=== PATIENT | male | born 1945 | race Two or more races ===

== ENCOUNTER → 2025-03-30 | Outpatient (CLI) | payer MEDICARE, SELFPAY ==
--- NOTE | 2025-03-30 14:00 | XR_ITS ---
Examination: Retroperitoneal ultrasound, complete Technique: Multiple high resolution grayscale images of the retroperitoneum obtained, including kidneys and bladder. Exam date and time:March 30, 2025 1329 hours INDICATIONS: Chronic kidney disease diagnosis on laboratory examination one month ago FINDINGS: Right kidney 10.7 cm cortex 1.6 cm Left kidney 11.8 cm cortex 2.4 cm Moderate renal parenchymal scar formation Perinephric stranding left kidney No hydronephrosis or renal calculi No bladder mass or bladder calculi Bladder prevoid volume 142 cc Prostatomegaly 61.4 cc volume no prostate nodules IMPRESSION: Bilateral moderate renal parenchymal scar formation No hydronephrosis
== END | disposition home or self-care (01) ==
PROVIDERS: Referring Provider Physician Assistant; Visit Provider Physician Assistant
DX: N28.89 Other specified disorders of kidney and ureter (principal)
CPT/HCPCS: 76770

== ENCOUNTER → 2025-09-03 | Outpatient (CLI) | payer MEDICARE, SELFPAY ==
--- NOTE | 2025-09-03 10:30 | XR_ITS ---
Examination: Abdomen sonogram, complete Date and time of exam: September 03, 2025, 1028 hours INDICATIONS: Elevated liver enzymes on laboratory examination this week.. Technique: Multiple real-time grayscale transabdominal sonographic images of the abdomen have been obtained. Findings: Absent gallbladder Common bile duct 0.5 cm no stones Pancreas obscured by bowel gas Mid and distal aorta visualized not enlarged Liver 16 cm fatty infiltration Normal hepatopetal portal venous flow Patent IVC Right kidney 8.9 cm renal cortex 1.7 cm Left kidney 11.0 cm renal cortex 2.8 cm Moderate renal scar formation Spleen 12 cm IMPRESSION: Normal common bile duct Moderate bilateral renal scar formation
== END | disposition home or self-care (01) ==
PROVIDERS: PCP Nurse Practitioner Primary Care; Referring Provider Nurse Practitioner Primary Care; Visit Provider Nurse Practitioner Primary Care
DX: N28.89 Other specified disorders of kidney and ureter (principal)
CPT/HCPCS: 76700

== ENCOUNTER 2025-09-21 14:45 | Inpatient (IN) | payer MEDICARE, SELFPAY ==
[2025-09-21] VITALS (8 sets, daily range): BP systolic 93–152; BP diastolic 54–74; PULSE 77–95; RESP 16–85; TEMP 36.1–36.7; O2SAT 93–98; BMI 28.0; BMI 28.6
--- NOTE | 2025-09-21 14:57 | XR_ITS ---
AP portable upright chest film 09/21/2025. Comparison study 08/29/2021. Study was performed on 09/21/2025 at 2:59 p.m. CLINICAL INDICATION: Weakness and shortness of breath today FINDINGS: Heart size and mediastinum appear radiographically normal there is slight elevation of the right hemidiaphragm which appears to be a normal finding in this patient, it is unchanged since the film in 2020. Pulmonary vascularity is normal. No infiltrates or consolidation are seen in either lung, no pleural fluid is noted impression: Normal chest x-ray
--- NOTE | 2025-09-21 14:58 | EKG_ITS ---
[facility] Test Date: 2025-09-21 Pat Name: LING DUONG Department: Room: - Gender: Male [place]: : 1945 Requested By: Anand Houser Order Number: [id number] Reading MD: Anand Houser Measurements Intervals Esko Rate: 88 P: 14 WY: 170 QRS: 95 QRSD: 132 T: 26 QT: 394 QTc: 478 Interpretive Statements SINUS RHYTHM RIGHT BUNDLE BRANCH BLOCK [120+ ms QRS DURATION, UPRIGHT V1, 40+ ms S IN I/aVL/V4/V5/V6] Compared to ECG 09/07/2020 11:53:20 No significant changes /store/S0/[id number].pdf
--- NOTE | 2025-09-21 15:01 | EDNOTE_ITS ---
ED General RME/HPI General Chief complaint: Abdominal Pain Stated complaint: ABD PAIN Time Seen by Provider: 09/21/25 14:57 Arrival date/time: 09/21/25 14:45 CC: Generalized weakness and abdominal distention HPI patient presents to the ER via EMS from the PCPs office where the patient states he is worried that his abdomen has become more distended. EMS reports stable vital signs patient is awake alert oriented nontoxic-appearing denies any chest pain no nausea or vomiting. Related Data Home Medications ?Medication ?Instructions ?Recorded ?Confirmed omeprazole 40 mg capsule,delayed 40 mg PO DAILY 08/30/21 release Previous Rx's ?Medication ?Instructions ?Recorded amlodipine 5 mg tablet 5 mg PO DAILY 30 days atorvastatin 40 mg tablet 40 mg PO DAILY 30 days 08/30 blood sugar diagnostic (Accu-Chek #100 ea 08/30/21 Tasha Plus test strips) chlorthalidone 25 mg tablet 12.5 mg (1/2 x 25 mg) PO D AILY 30 08/30/21 days doxazosin 1 mg tablet 1 mg PO QDAY 30 days #30 tab s 08/30/21 insulin glargine 100 unit/mL (3 20 unit (0.2 mL) subcu t QAM #15 mL 08/30/21 mL) subcutaneous pen (Basaglar KwikPen U-100 Insulin) lancets #100 ea 08/30/21 lisinopril 40 mg tablet 40 mg PO DAILY 30 days #60 t abs 08/30/21 lisinopril 40 mg tablet 40 mg PO QDAY #30 tabs 08/30 Allergies Allergy/AdvReac Type Severity Reaction Status Date / Time No Known Allergies Allergy Verified 08/28/21 18:55 Review of Systems Review of Systems Narrative Review of Systems: GEN: No fever, no chills, no weight loss EYES: No discharge, no visual changes, no pain HEENT: No ear pain, no congestion, no sore throat PULM: No shortness of breath, no cough, no congestion CV: No chest pain, no dyspnea on exertion, no palpitations GI: No nausea, no vomiting, no diarrhea, no pain, no constipation : No frequency, no urgency, no dysuria MUSC/SKEL: No joint pain, no back pain SKIN: No rash PSYCH: No hallucinations, no depression HEME/LYMPH: No easy bleeding or bruising tendencies NEURO: + weakness, no headache ED Exam Narrative Physical exam: [General: Not in any acute distress Head normocephalic HEENT: Within acceptable limits Neck is supple nontender Chest equal chest rise nontender to palpation Respiratory: Clear to auscultation no wheezes crackles or rubs CV: Rate rhythm is regular no murmurs rubs or clicks Abdomen is distended, firm but not rigid, nontender, positive bowel sounds all 4 quadrants Back: No CVA tenderness no spinous process tenderness from cervical spine thoracic and lumbar spine Skin: Intact no petechiae rash induration ulceration or crepitus Extremities: Moving all extremity against resistance cap refill less than 2 seconds neurosensory intact Neuro: Awake alert oriented x3 Glascow coma 15 no focal deficits] Course Course Course Narrative: Patient started vomiting at approximately 1627. Patient's case discussed with Dr. Morton who agrees to consult on the patient Patient's case presented to resident for Dr. Reinoso who agrees to accept the patient for admission. Resident called at 1724 requesting IV insulin and fluids with a recheck of his CMP to be determined that the patient is not in DKA. I informed the patient that he has no anion gap and the beta is not accidentally actively elevated. Quality Measures none Orders Category Date Time Status Admit to Inpatient Status Routine Admission 09/21/25 20:11 Active Patient Condition Routine Admission 09/21/25 20:11 Ordered Aspiration precautions NOW Care 09/21/25 20:13 Active Bedside Blood Glucose Q6HR Care 09/21/25 20:20 Completed COVID-19 Screening Questionnaire NOW Care 09/21/25 16:26 Completed Decision to Admit X1 Care 09/21/25 16:23 Completed EKG (ED ONLY) *Do not use* NOW Care 09/21/25 14:58 Completed NG / OG Tube to LIS NOW Care 09/21/25 16:22 Completed NPO NOW Care 09/21/25 20:13 Active Notify provider NEEDED Care 09/21/25 20:11 Active Sequential Compression Device QSHIFT Care 09/21/25 20:10 Active Consult to General Surgery Stat Cons 09/21/25 16:01 Ordered Diet NPO (NOW) Diet 09/21/25 20:[address] abdomen pelvis wo con Stat Exams 09/21/25 15:03 Completed EKG (ED Only) Stat Exams 09/21/25 14:58 Draft XR chest 1V Stat Exams 09/21/25 14:57 Completed XR chest 1V post procedure Stat Exams 09/21/25 16:59 Completed ABG [Arterial Blood Gas] Stat Lab 09/21/25 17:09 Completed B-Type Natriuretic Peptide Stat Lab 09/21/25 15:20 Completed Beta Hydroxybutyrate Stat Lab 09/21/25 16:16 Completed Blood Culture (Lab) Stat Lab 09/21/25 16:16 Received CBC AM DRAW Lab 09/22/25 05:00 Ordered CBC AM DRAW Lab 09/23/25 05:00 Ordered CBC AM DRAW Lab 09/24/25 05:00 Ordered CBC Stat Lab 09/21/25 15:20 Completed CBC Stat Lab 09/21/25 17:29 Completed CMP [Comprehensive Metabolic Panel] Stat Lab 09/21/25 17:29 Completed Comprehensive Metabolic Panel AM DRAW Lab 09/22/25 05:00 Ordered Comprehensive Metabolic Panel AM DRAW Lab 09/23/25 05:00 Ordered Comprehensive Metabolic Panel AM DRAW Lab 09/24/25 05:00 Ordered Comprehensive Metabolic Panel Stat Lab 09/21/25 15:20 Completed Drug Screen,Urine Stat Lab 09/21/25 20:50 Completed Glycohemoglobin w (eAG) AM DRAW Lab 09/22/25 05:00 Ordered LDH (Lactate Dehydrogenase) Stat Lab 09/21/25 15:20 Completed Lactic Acid [Lactate (Lactic Acid)] Stat Lab 09/21/25 16:16 Completed Lactic Acid, 3 HR Stat Lab 09/21/25 19:59 Completed Magnesium AM DRAW Lab 09/22/25 05:00 Ordered Magnesium AM DRAW Lab 09/23/25 05:00 Ordered Magnesium AM DRAW Lab 09/24/25 05:00 Ordered Magnesium Stat Lab 09/21/25 15:20 Completed Partial Thromboplastin Time AM DRAW Lab 09/22/25 05:00 Ordered Partial Thromboplastin Time Stat Lab 09/21/25 15:20 Completed Path Review Blood Smear Stat Lab 09/21/25 15:20 Completed Path Review Blood Smear Stat Lab 09/21/25 17:29 Completed Procalcitonin Stat Lab 09/21/25 15:20 Completed Prothrombin Time with INR AM DRAW Lab 09/22/25 05:00 Ordered Prothrombin Time with INR Stat Lab 09/21/25 15:20 Completed Renal Function Panel Stat Lab 09/21/25 20:55 Completed Thyroid Stimulating Hormone AM DRAW Lab 09/22/25 05:00 Ordered Troponin I Stat Lab 09/21/25 15:20 Completed Urinalysis, C/S if Indicated Stat Lab 09/21/25 20:50 Completed Dextrose 50% Syr [D50w Syringe Abboject] Med 09/21/25 20:20 Active 25 ml IV Q15MIN PRN Dextrose 50% Syr [D50w Syringe Abboject] Med 09/21/25 20:20 Active 50 ml IV Q15MIN PRN Glucagon Inj Med 09/21/25 20:20 Active 1 mg IM Q15MIN PRN INSULIN LISPRO (AdmeLOG) [HumaLOG] Med 09/21/25 20:30 Active See Protocol SC Q6H Insulin Degludec Inj Med 09/21/25 20:30 Active 15 unit SC QDAY@2100 Insulin Regular Med 09/21/25 17:22 Discontinued 5 unit IV X1 ONE Morphine* Inj Med 09/21/25 20:10 Active 2 mg IVP Q2H PRN Morphine* Inj Med 09/21/25 17:53 Discontinued 4 mg IVP X1 ONE Ondansetron Inj [Zofran Inj] Med 09/21/25 20:10 Active 4 mg IVP Q6H PRN Ondansetron Inj [Zofran Inj] Med 09/21/25 16:27 Discontinued 4 mg IVP X1 ONE Pantoprazole Inj [Protonix Inj] Med 09/21/25 20:15 Active 40 mg IVP QDAY Piper/Tazo 3.375 gm Premix [Zosyn] Med 09/22/25 06:00 Active 3.375 gm in 50 ml IV Q8HR Sodium Chloride 0.9% 1000 ml [Ns] 1,000 ml Med 09/21/25 15:58 Active IV 125 mls/hr Sodium Chloride 0.9% 1000 ml [Ns] 1,000 ml Med 09/21/25 16:23 Discontinued IV 999 mls/hr Code Status Routine Oth 09/21/25 20:10 Ordered Oxygen Delivery PRN RT 09/21/25 20:10 Active Vital Signs Vital signs: Vital Signs Temperature 97.6 F 09/21/25 14:48 Pulse Rate 84 09/21/25 14:48 Respiratory Rate 16 09/21/25 14:48 Blood Pressure 152/68 H 09/21/25 14:48 Pulse Oximetry (%) 95 09/21/25 14:48 Oxygen Delivery Method Room Air 09/21/25 14:48 Discharge Plan Plan Patient Disposition: Other Care w/in Hosp ([facility]ALIY[facility]) Patient condition on transfer: Stable Problem List Clinical Impression: SBO (small bowel obstruction), ERNESTO (acute kidney injury), Hyperglycemia PA/[employer] Supervising Physician PA/[employer] Supervising Physician: Anand Elmore ENP [facility] Clinical Information Provided by: patient Medical Records reviewed [facility] Meds/Rx considered, not ordered None Labs/Rad/Tests considered, not ordered None Chronic Illness/Social Conditions Explain: Diabetes EKG EKG not done Labs Labs: interpreted by la Lab(s) Interpretation(s): CBC shows a 40,100 WBCs. No anemia or thrombocytopenia. Coags within acceptable limits Imaging Imaging interpretation: interpreted by la Imaging Interpretation(s): CT abdomen pelvis shows a high-grade mechanical SBO. No free air noted. Chest x-ray is unremarkable. Medication Administration(s) Medication Administration History Dextrose (Dextrose 50%-Water Inj 50 Ml Syringe) 25 ml IV Q15MIN PRN PRN Reason: BG 50-70 responsive npo pt Stop: 10/21/25 20:19 Dextrose (Dextrose 50%-Water Inj 50 Ml Syringe) 50 ml IV Q15MIN PRN PRN Reason: BG <50 OR BG <70 & pt unresponsive Stop: 10/21/25 20:19 Glucagon (Glucagon Inj 1 Mg Vial) 1 mg IM Q15MIN PRN PRN Reason: BG <70, and no IV access Sodium Chloride (Ns) 1,000 mls @ 125 mls/hr IV .Q8H [facility] Stop: 10/21/25 15:57 Last Admin: 09/21/25 16:09 Dose: 125 mls/hr Documented By: DO Piperacillin/Tazobactam/Dextrose (Zosyn) 3.375 gm in 50 mls @ 12.5 mls/hr IV Q8HR [facility]; Protocol Stop: 09/29/25 05:59 Sodium Chloride (Ns) 1,000 mls @ 80 mls/hr IV .[id number] [facility] Stop: 09/22/25 08:59 Insulin Degludec (Insulin Degludec 5 Unit/0.05 Ml (Per 5 Units)) 15 unit SC QDAY@2100 RED Stop: 10/21/25 20:29 Last Admin: 09/21/25 22:21 Dose: 15 unit Documented By: SAVITA Co-signed By: Insulin Human Lispro (Insulin Lispro (Admelog) 1 Unit/0.01 Ml Unit) 0 unit SC Q6H RED; Protocol Stop: 10/21/25 20:29 Last Admin: 09/21/25 22:16 Dose: 3 unit Documented By: SAVITA Co-signed By: Morphine Sulfate (Morphine Sulf Inj 4 Mg/Ml Vial) 2 mg IVP Q2H PRN PRN Reason: PAIN SCALE 4-10(Mod-Sev Stop: 09/26/25 20:09 Last Admin: 09/21/25 22:21 Dose: 2 mg Documented By: SAVITA Ondansetron HCl (Ondansetron Inj 2 Mg/Ml Inj 2 Ml) 4 mg IVP Q6H PRN; Protocol PRN Reason: NAUSEA OR VOMITING Stop: 10/21/25 20:09 Pantoprazole Sodium (Pantoprazole Inj 40 Mg Vial) 40 mg IVP QDAY [facility] Stop: 10/21/25 20:14 Last Admin: 09/21/25 21:16 Dose: 40 mg Documented By: JAMARI Discontinued Medications Sodium Chloride (Ns) 1,000 mls @ 999 mls/hr IV .Q1H1M ONE Stop: 09/21/25 17:23 Last Infusion: 09/21/25 18:01 Dose: Infused Documented By: Admin: 09/21/25 17:07 Dose: 999 mls/hr Documented By: Piperacillin/Tazobactam/Dextrose (Zosyn) 3.375 gm in 50 mls @ 100 mls/hr IV X1 ONE; Protocol Stop: 09/21/25 20:59 Last Infusion: 09/21/25 21:46 Dose: Infused Documented By: Admin: 09/21/25 21:16 Dose: 100 mls/hr Documented By: JAMARI Insulin Human Regular (Insulin Hum Regular 1 Unit/0.01 Ml (Per Unit)) 5 unit IV X1 ONE Stop: 09/21/25 17:23 Last Admin: 09/21/25 17:33 Dose: 5 unit Documented By: Co-signed By: JENNIFER Morphine Sulfate (Morphine Sulf Inj 4 Mg/Ml Vial) 4 mg IVP X1 ONE Stop: 09/21/25 17:54 Last Admin: 09/21/25 18:09 Dose: 4 mg Documented By: Ondansetron HCl (Ondansetron Inj 2 Mg/Ml Inj 2 Ml) 4 mg IVP X1 ONE; Protocol Stop: 09/21/25 16:28 Last Admin: 09/21/25 17:06 Dose: 4 mg Documented By:
--- NOTE | 2025-09-21 15:03 | XR_ITS ---
Examination: CT abdomen and pelvis without contrast. Coronal 3-D reconstructions. Sagittal 2-D reconstructions. Date and time of exam: September 21, 2025, 1534 hours, comparison October 14, 2020 INDICATIONS: Abdominal pain and distention 1 month CTDI: vol (mGy): 9.53 DLP: (mGycm): 637 Technique: Axial images of the abdomen have been obtained, 3 mm slice thickness Intravenous contrast material has not been administered. Low dose protocols were performed. One or more of the following dose reduction techniques were used; automated exposure control, adjustment of the mA and/or KV according to patient size, use of iterative reconstruction technique. Findings: Trace pericardial fluid No focal liver lesions Spleen is not enlarged No pancreatic mass Nodular thickening of both adrenal glands No hydronephrosis Multiple abnormally fluid and air distended small bowel loops with some edema in the mesentery for instance axial image 163 No pneumoperitoneum Normal seminal vesicles Transverse prostate dimension 4.6 cm Soft tissue probable lipomatous mass 5 cm anterior to the right hip Advanced disc narrowing L5-S1 Prominent osteopenia IMPRESSION: High-grade mechanical small bowel obstruction Edema in the mesentery, although no air in the bowel wall or pneumoperitoneum, recommend surgical consultation
[2025-09-21 15:37] LABS: Basophils # (Auto) 0.2 Thou/mm3 (0.0-0.2); Basophils % (Auto) 1 % (0-2.5); Eosinophils # (Auto) 0.0 Thou/mm3 (0.0-0.5); Eosinophils % (Auto) 0 % (0-10); Hematocrit 47.0 % (41.0-53.0); Hemoglobin 16.4 g/dL (13.5-16.0); Immature Granulocytes Auto 0.80 Thou/mm3 (0.00-0.00); Lymphocytes # (Auto) 0.8 Thou/mm3 (1.0-4.8); Lymphocytes % (Auto) 2 % (10-50); Mean Corpuscular HGB Conc 34.9 g/dl (31.0-37.0); Mean Corpuscular Hemoglobin 30.9 pg (25.0-35.0); Mean Corpuscular Volume 89 fL (80-100); Monocytes # (Auto) 1.3 Thou/mm3 (0.0-0.8); Monocytes % (Auto) 3 % (0-12); Neutrophils # (Auto) 37.0 Thou/mm3 (1.8-7.7); Neutrophils % (Auto) 92 % (37-80); Nucleated Red Blood Cell # 0.00 Thou/mm3 (0.00-0.00); Nucleated Red Blood Cell % 0 /100 WBC (0); Platelet Count 243 Thou/mm3 (140-440); RDW Standard Deviation 39.2 fL (35.1-43.9); Red Blood Count 5.30 Miln/mm3 (4.50-5.90)
[2025-09-21 15:51] LABS: White Blood Count 40.1 Thou/mm3 (3.8-10.6)
[2025-09-21 15:52] LABS: INR 1.0 (0.9-1.3); Partial Thromboplastin Time 27.3 Seconds (22.0-36.0); Prothrombin Time 10.9 Seconds (9.0-12.2)
[2025-09-21 16:04] LABS: Alanine Aminotransferase 46 U/L (10-49); Albumin, Serum 4.0 gm/dL (3.4-4.8); Albumin/Globulin Ratio 1.6 (1.2-2.2); Alkaline Phosphatase 254 U/L (46-116); Anion Gap 15 (7-16); Aspartate Amino Transferase 33 U/L (0-34); BUN/Creatinine Ratio 20 Ratio (12-20); Bilirubin,Total 1.5 mg/dL (0.3-1.2); Blood Urea Nitrogen 65 mg/dL (9-23); Calcium 8.8 mg/dL (8.3-10.6); Calcium (Corrected) 8.8 mg/dL (8.5-10.1); Carbon Dioxide 32.2 mMol/L (20.0-31.0); Chloride 88 mMol/L (98-107); Creatinine (Component) 3.3 mg/dL (0.6-1.3); Estimated Creatinine Clearance 18.8 mL/min (>60); Globulin 2.5 gm/dL (2.3-3.5); LDH (Lactate Dehydrogenase) 207 U/L (120-246); Magnesium 4.6 mg/dL (1.6-2.6); Osmolality,Calculated 306 (275-295); Potassium 4.8 mMol/L (3.4-5.1); Sodium 135 mMol/L (136-145); Total Protein 6.5 gm/dL (5.7-8.2); Troponin I 0.032 ng/mL (0.0-0.045); eGFR 18 See Note
[2025-09-21 16:05] LABS: B-Type Natriuretic Peptide 92 pg/mL (0-100)
[2025-09-21 16:07] LABS: Glucose 419 mg/dL (74-106)
[2025-09-21] MEDS: SODIUM CHLORIDE 0.9% 1000 ML 1,000 ML 125 ML IV (16:09)
[2025-09-21 16:26] LABS: Procalcitonin 5.20 ng/ml (0.0-0.49)
[2025-09-21 16:32] LABS: Path Review Blood Smear Sent to Pathologist
[2025-09-21 16:34] LABS: Lactate (Lactic Acid) 2.7 mMol/L (0.4-2.0)
[2025-09-21 16:39] LABS: Beta Hydroxybutyrate 0.9 mmol/L (<0.6)
--- NOTE | 2025-09-21 16:39 | PD.SURCONS ---
HPI Consult details History of present illness: 80M with HTN, HLD, DMII presenting with abdominal distention. Pt states he has some nausea, had not been vomiting before arrival but did just have an episode in the ER. CT shows SBO, pt denies history of similar symptoms PMH: HTN, HLD, DMII PSHx: Cholecystectomy, pt reports he had a repair of gastric ulcer Meds: No antiplt or anticoagulation Allergies: NKDA Review of Systems Review of Systems ROS Unobtainable: All systems reviewed & no additional complaints except as documented Meds Home Medications and Allergies Home Medications ?Medication ?Instructions ?Recorded ?Confirmed ?Type omeprazole 40 mg capsule,delayed 40 mg PO DAILY 08/30/21 08/30/21 History release Allergies Allergy/AdvReac Type Severity Reaction Status Date / Time No Known Allergies Allergy Verified 08/28/21 18:55 Exam Vital Signs Temp Pulse Resp BP Pulse Ox O2 Del Method 97.8 F 95 18 151/72 H 95 Nasal Cannula 09/21/25 16:10 09/21/25 16:10 09/21/25 16:10 09/21/25 16:10 09/21/25 16:10 09/21/25 16:10 Constitutional Constitutional: no acute distress Routine Respiratory Exam Respiratory: Present no resp distress Routine Abdominal Exam Abdominal: Present soft, tenderness (minimal tenderness), distended and surgical scars (upper midline incision healed) Results Results: Laboratory Laboratory results: results reviewed Results: Imaging CT scan - abdomen: report reviewed and image reviewed Assessment & Plan Plan 80M with HTN, HLD, DMII presenting with abdominal distention, history of abdominal surgeries and findings of SBO NG to LIS Following NG decompression initiate small bowel series
--- NOTE | 2025-09-21 16:59 | XR_ITS ---
EXAMINATION: AP chest single view TECHNIQUE: AP portable upright chest single view Date and time: September 21, 2025, 1737 hours, comparison September 21, 2025 1459 hours INDICATIONS: Orogastric tube placement FINDINGS: Orogastric tube sidehole at the GE junction Normal heart size Mild vascular congestion Atelectasis left midlung IMPRESSION: Advance the orogastric tube 5 cm
[2025-09-21] MEDS: ONDANSETRON INJ 2 MG/ML INJ 2 ML 4 MG IVP (17:06)
[2025-09-21] MEDS: SODIUM CHLORIDE 0.9% 1000 ML 1,000 ML 999 ML IV (17:07)
--- NOTE | 2025-09-21 17:08 | PD.RESHP ---
Documentation for date of: 09/21/25 HPI History of Present Illness Chief complaint: Abdominal Pain History of present illness: Mr. ED Course In the ED, ROS Constitutional: Resp distress, a/o x 3, denies fever/chills. GI: Denies nausea, vomiting. +Fullness, loss of appetite, intolerance of food. CV: Denies chest pain or palpitations. Resp: Denies SOB, dyspnea, increase WOB. : Denies dysuria, CVA tenderness, suprapubic tenderness. Neuro: Denies dizziness, no focal deficits. Past Medical History DM2 Hypertension Hyperlipidemia GERD Social History Lives at home, independent baseline. Former smoker, drink few times a week. Denies drug use. Surgical History Allergies Codeine Home Meds Exam Vital Signs Temp Pulse Resp BP Pulse Ox O2 Del Method 97.8 F 95 18 151/72 H 95 Nasal Cannula 09/21/25 16:10 09/21/25 16:10 09/21/25 16:10 09/21/25 16:10 09/21/25 16:10 09/21/25 16:10 Results: Labs 09/21/25 15:20 09/21/25 15:20 Labs: Short CBC 09/21/25 Range/Units 15:20 WBC 40.1 H* (3.8-10.6) Thou/mm3 Hgb 16.4 H (13.5-16.0) g/dL Hct 47.0 (41.0-53.0) % Plt Count 243 (140-440) Thou/mm3 BMP 09/21/25 15:20 Sodium 135 L Potassium 4.8 Chloride 88 L Carbon Dioxide 32.2 H BUN 65 H Creatinine 3.3 H Glucose 419 H* Calcium 8.8 Cardiac Enzymes 09/21/25 Range/Units 15:20 Troponin I 0.032 (0.0-0.045) ng/mL Liver Function 09/21/25 Range/Units 15:20 Total Bilirubin 1.5 H (0.3-1.2) mg/dL AST 33 (0-34) U/L ALT 46 (10-49) U/L Alkaline Phosphatase 254 H (46-116) U/L Albumin 4.0 (3.4-4.8) gm/dL Medications Home Medications and Allergies Home Medications ?Medication ?Instructions ?Recorded ?Confirmed ?Type omeprazole 40 mg capsule,delayed 40 mg PO DAILY 08/30/21 08/30/21 History release Allergies Allergy/AdvReac Type Severity Reaction Status Date / Time No Known Allergies Allergy Verified 08/28/21 18:55 Visit Medications Sodium Chloride (Ns) 1,000 mls @ 125 mls/hr IV .Q8H RED Stop: 10/21/25 15:57 Last Admin: 09/21/25 16:09 Dose: 125 mls/hr Sodium Chloride (Ns) 1,000 mls @ 999 mls/hr IV .Q1H1M ONE Stop: 09/21/25 17:23 Last Admin: 09/21/25 17:07 Dose: 999 mls/hr Discontinued Medications Ondansetron HCl (Ondansetron Inj 2 Mg/Ml Inj 2 Ml) 4 mg IVP X1 ONE; Protocol Stop: 09/21/25 16:28 Last Admin: 09/21/25 17:06 Dose: 4 mg
[2025-09-21] MEDS: INSULIN HUM REGULAR 1 UNIT/0.01 ML (PER UNIT) 5 UNIT IV (17:33)
[2025-09-21 17:37] LABS: Base Excess 11 (-3-3); HCO3 35 mEq/L (20-26); Inspired O2, VO2 Liters 2 L/min; O2 Saturation 94 % (91-98); PCO2 44 mmHg (32.0-48.0); PO2 69 mmHg (83-108); pH, Arterial 7.51 (7.35-7.45)
[2025-09-21 17:44] LABS: Allen Test Performed/OK; Puncture Site Right Radial
--- NOTE | 2025-09-21 17:54 | PC.NURSE ---
This RN notified PAT Michel about pt's pain and request for pain meds. Per PAT Michel to put in Morphine order for pt
[2025-09-21 17:56] LABS: Basophils # (Auto) 0.2 Thou/mm3 (0.0-0.2); Basophils % (Auto) 0 % (0-2.5); Eosinophils # (Auto) 0.0 Thou/mm3 (0.0-0.5); Eosinophils % (Auto) 0 % (0-10); Hematocrit 44.5 % (41.0-53.0); Hemoglobin 15.3 g/dL (13.5-16.0); Immature Granulocytes Auto 0.78 Thou/mm3 (0.00-0.00); Lymphocytes # (Auto) 0.5 Thou/mm3 (1.0-4.8); Lymphocytes % (Auto) 1 % (10-50); Mean Corpuscular HGB Conc 34.4 g/dl (31.0-37.0); Mean Corpuscular Hemoglobin 30.5 pg (25.0-35.0); Mean Corpuscular Volume 89 fL (80-100); Monocytes # (Auto) 1.1 Thou/mm3 (0.0-0.8); Monocytes % (Auto) 3 % (0-12); Neutrophils # (Auto) 33.7 Thou/mm3 (1.8-7.7); Neutrophils % (Auto) 93 % (37-80); Nucleated Red Blood Cell # 0.00 Thou/mm3 (0.00-0.00); Nucleated Red Blood Cell % 0 /100 WBC (0); Platelet Count 199 Thou/mm3 (140-440); RDW Standard Deviation 39.2 fL (35.1-43.9); Red Blood Count 5.01 Miln/mm3 (4.50-5.90)
[2025-09-21 18:00] LABS: White Blood Count 36.3 Thou/mm3 (3.8-10.6)
[2025-09-21 18:06] LABS: Path Review Blood Smear Sent to Pathologist
[2025-09-21] MEDS: MORPHINE SULF INJ 4 MG/ML VIAL IVP (18:09)
--- NOTE | 2025-09-21 18:15 | PC.NURSE ---
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 Pt NGT now 60cm
--- NOTE | 2025-09-21 18:44 | PD.RESEVENT ---
Documentation for date of: 09/21/25 Event Note Event Note: Received phone call from ED for admission, however, given patient's high glucose level and history of insulin dependent diabetes type 2, we have concern for possible DKA, which will require ICU level admission. We recommend IV insulin and fluids with a recheck of his CMP to determine patient is not in DKA prior to admission. We have asked ED physician to bolus fluids and give INSULIN subcu followed by repeat labs. Patient would like continued admission to ICU versus floor based on repeat CMP. Case discussed with my senior resident Dr. Griffiths Case discussed with my attending Dr. Kemar Schrader, DO PGY 1
[2025-09-21 18:53] LABS: Alanine Aminotransferase 39 U/L (10-49); Albumin, Serum 3.5 gm/dL (3.4-4.8); Albumin/Globulin Ratio 1.8 (1.2-2.2); Alkaline Phosphatase 236 U/L (46-116); Anion Gap 14 (7-16); Aspartate Amino Transferase 34 U/L (0-34); BUN/Creatinine Ratio 23 Ratio (12-20); Bilirubin,Total 1.3 mg/dL (0.3-1.2); Blood Urea Nitrogen 75 mg/dL (9-23); Calcium 8.0 mg/dL (8.3-10.6); Calcium (Corrected) 8.4 mg/dL (8.5-10.1); Carbon Dioxide 31.4 mMol/L (20.0-31.0); Chloride 91 mMol/L (98-107); Creatinine (Component) 3.3 mg/dL (0.6-1.3); Estimated Creatinine Clearance 18.8 mL/min (>60); Globulin 2.0 gm/dL (2.3-3.5); Potassium 5.3 mMol/L (3.4-5.1); Sodium 136 mMol/L (136-145); Total Protein 5.5 gm/dL (5.7-8.2); eGFR 18 See Note
--- NOTE | 2025-09-21 19:19 | PC.NURSE ---
SBAR from Mary RN, Pt in bed high fowlers intermittent suction Gtube running oxy mask on 14 l due to NG tube blocking nasal cannula and Pt cont to desat will call RT and notify MD daughter at bedside Pt a/o 4 denies fátima acute pain or distress
[2025-09-21 19:20] LABS: Glucose 398 mg/dL (74-106); Osmolality,Calculated 311 (275-295)
[2025-09-21 19:28] LABS: Reflex Lactate? Y
[2025-09-21 20:05] LABS: Lactic Acid, 3 HR 1.4 mMol/L (0.4-2.0)
--- NOTE | 2025-09-21 20:22 | PD.RESHP ---
Documentation for date of: 09/21/25 HPI History of Present Illness Chief complaint: Abdminal pain History of present illness: 80-year-old male with past medical history of DM2, hypertension, hyperlipidemia, and previous abdominal surgery due to an ulcer comes into the hospital with chief complaint of abdominal pain. Patient was told by his primary care physician to come into the ER as he had been having around 3 weeks of low oral intake along with some nausea, abdominal distention, and not having a bowel movement throughout this time either. Patient is a poor historian, but patient's daughter was at bedside even though she does not live with the patient she was able to tell me that he has been feeling unwell recently. Patient stated that he had not come to the hospital, but that today his primary care physician told him to come to the hospital and that his words had worsened today than days prior. He denies any vomiting or issues urinating. Otherwise has no other complaints at this time. ED course: Initially came in hypertensive and afebrile. Initial labs were evaluate for other significant leukocytosis, mild hypokalemia, anion gap metabolic acidosis, ERNESTO, hyperglycemia, lactic acidosis, hyperphosphatemia, hyperbilirubinemia. Patient's beta-hydroxybutyrate 0.9 and procalcitonin was 5.2. Initial imaging included chest x-ray which showed no active disease, abdomen/pelvis CT which showed mesenteric edema and high-grade mechanical SBO. General surgery was consulted in the ED and recommended NG tube to LIS and bowel series. PMH: As above Social: Denies drugs, and admits smoking Allergies: NKDA Surgical Hx: Gastric surgery Review of Systems Review of Systems Systems Reviewed: All systems reviewed, normal except as documented Past Medical History Past Medical History NEUROLOGIC: Negative Neurological Disorders or Seizures CARDIAC: Positive Cardiac Disorders, Hypercholesterolemia, Hypertension and Hypotension; Negative Congestive Heart Failure RESPIRATORY: Negative Chronic Obstructive Pulmonary Disease (COPD) GASTROINTESTINAL: Positive Gall Bladder Disease and Ulcer; Negative Gastrointestinal Disorders GENITOURINARY: Negative Genitourinary Disorders or Renal Disease MUSCULOSKELETAL: Negative Musculoskeletal Disorders ENDOCRINE: Positive Endocrine Disorders and Diabetes Mellitus Type 2 (U); Negative Diabetes Mellitus Type 1 HEMATOLOGIC: Negative Blood Disorders OTHER HISTORY: Negative Autoimmune Disease, Blood Transfusions, Blood Transfusion Reaction or Anesthesia Reactions Surgical History SURGICAL: Positive Abdominal Surgery; Negative Cardiac Surgery or Endocrine Surgery Social History SMOKING STATUS: Never smoker Travel History EBOLA RISK: No Exam Vital Signs Temp Pulse Resp BP Pulse Ox O2 Del Method O2 Flow Rate 97.8 F 88 22 H 129/74 93 L Oxy Mask 7 09/21/25 20:06 09/21/25 20:06 09/21/25 20:06 09/21/25 20:06 09/21/25 20:06 09/21/25 20:06 09/21/25 20:06 Narrative Exam Gen: A&O X 3, NAD HEENT: NCAT, EOMI, Pupils reactive JUAN, not icteric. External ears normal. No rhinorrhea. Moist mucous membranes. Neck: Supple, full range of motion, no observable masses, No meningeal sign. Lungs: No Respiratory distress, clear bilateral. CV: RRR, no murmurs. Abdomen: Disteneded with RLQ pain, but no guarding or rebound. Hypo-active bowel sounds JUAN lower quadrants. MSK: No joint swelling, no redness, peripheral pulses presents, lumbar with no edema. Skin: No rashes, petechiae, lesions. Neuro: No focal neurological deficits appreciated, sensory and motor intact. Psych: Cooperative, appropriate mood and effect. Results: Labs 09/21/25 17:29 09/21/25 20:55 Labs: Short CBC 09/21/25 09/21/25 Range/Units 15:20 17:29 WBC 40.1 H* 36.3 H* (3.8-10.6) Thou/mm3 Hgb 16.4 H 15.3 (13.5-16.0) g/dL Hct 47.0 44.5 (41.0-53.0) % Plt Count 243 199 D (140-440) Thou/mm3 BMP 09/21/25 09/21/25 15:20 17:29 Sodium 135 L 136 Potassium 4.8 5.3 H D Chloride 88 L 91 L Carbon Dioxide 32.2 H 31.4 H BUN 65 H 75 H Creatinine 3.3 H 3.3 H Glucose 419 H* 398 H Calcium 8.8 8.0 L Cardiac Enzymes 09/21/25 Range/Units 15:20 Troponin I 0.032 (0.0-0.045) ng/mL Liver Function 09/21/25 09/21/25 Range/Units 15:20 17:29 Total Bilirubin 1.5 H 1.3 H (0.3-1.2) mg/dL AST 33 34 (0-34) U/L ALT 46 39 (10-49) U/L Alkaline Phosphatase 254 H 236 H (46-116) U/L Albumin 4.0 3.5 D (3.4-4.8) gm/dL ABG Interpretation ABG results: 09/21/25 17:09 ABG pH 7.51 H ABG pCO2 44 ABG pO2 69 L ABG HCO3 35 H ABG O2 Saturation 94 ABG Base Excess 11 H Quality Measures Quality Measures VTE prophylaxis Advance care planning discussed with:: patient Medications Home Medications and Allergies Home Medications ?Medication ?Instructions ?Recorded ?Confirmed ?Type atorvastatin 10 mg tablet 10 mg PO DAILY 09/22/25 09/22/25 History empagliflozin 25 mg tablet 25 mg PO DAILY 09/22/25 09/22/25 History (Jardiance) ergocalciferol (vitamin D2) 1,250 1,250 mcg PO QWEEK 09/22/25 09/22/25 History mcg (50,000 unit) capsule (Vitamin D2) lisinopril 30 mg tablet 30 mg PO DAILY 09/22/25 09/22/25 History magnesium oxide 400 mg PO QDAY 09/22/25 09/22/25 History Allergies Allergy/AdvReac Type Severity Reaction Status Date / Time No Known Allergies Allergy Verified 08/28/21 18:55 Visit Medications Dextrose (Dextrose 50%-Water Inj 50 Ml Syringe) 25 ml IV Q15MIN PRN PRN Reason: BG 50-70 responsive npo pt Stop: 10/21/25 20:19 Dextrose (Dextrose 50%-Water Inj 50 Ml Syringe) 50 ml IV Q15MIN PRN PRN Reason: BG <50 OR BG <70 & pt unresponsive Stop: 10/21/25 20:19 Glucagon (Glucagon Inj 1 Mg Vial) 1 mg IM Q15MIN PRN PRN Reason: BG <70, and no IV access Sodium Chloride (Ns) 1,000 mls @ 125 mls/hr IV .Q8H RED Stop: 10/21/25 15:57 Last Admin: 09/21/25 16:09 Dose: 125 mls/hr Piperacillin/Tazobactam/Dextrose (Zosyn) 3.375 gm in 50 mls @ 100 mls/hr IV Q6H RED; Protocol Stop: 09/28/25 20:29 Insulin Degludec (Insulin Degludec 5 Unit/0.05 Ml (Per 5 Units)) 15 unit SC QDAY RED Stop: 10/21/25 20:29 Insulin Human Lispro (Insulin Lispro (Admelog) 1 Unit/0.01 Ml Unit) 0 unit SC Q6H RED; Protocol Stop: 10/21/25 20:29 Morphine Sulfate (Morphine Sulf Inj 4 Mg/Ml Vial) 2 mg IVP Q2H PRN PRN Reason: PAIN SCALE 4-10(Mod-Sev Stop: 09/26/25 20:09 Ondansetron HCl (Ondansetron Inj 2 Mg/Ml Inj 2 Ml) 4 mg IVP Q6H PRN; Protocol PRN Reason: NAUSEA OR VOMITING Stop: 10/21/25 20:09 Pantoprazole Sodium (Pantoprazole Inj 40 Mg Vial) 40 mg IVP QDAY [facility] Stop: 10/21/25 20:14 Discontinued Medications Sodium Chloride (Ns) 1,000 mls @ 999 mls/hr IV .Q1H1M ONE Stop: 09/21/25 17:23 Last Infusion: 09/21/25 18:01 Dose: Infused Insulin Human Regular (Insulin Hum Regular 1 Unit/0.01 Ml (Per Unit)) 5 unit IV X1 ONE Stop: 09/21/25 17:23 Last Admin: 09/21/25 17:33 Dose: 5 unit Morphine Sulfate (Morphine Sulf Inj 4 Mg/Ml Vial) 4 mg IVP X1 ONE Stop: 09/21/25 17:54 Last Admin: 09/21/25 18:09 Dose: 4 mg Ondansetron HCl (Ondansetron Inj 2 Mg/Ml Inj 2 Ml) 4 mg IVP X1 ONE; Protocol Stop: 09/21/25 16:28 Last Admin: 09/21/25 17:06 Dose: 4 mg Assessment & Plan Plan 80-year-old male with past medical history of DM2, hypertension, hyperlipidemia, and previous abdominal surgery due to an ulcer was admitted to the hospital due to SBO, high grade. #High grade SBO, mechanical #Leukocytosis #Abdominal distention Patient came in with complaints of not having bowel movement for around 3 weeks along with abdominal distention and abdominal pain. Patient was sent over to the ER by his primary care physician Abdomen/pelvis CT that showed high-grade mechanical SBO with some mesenteric edema. Leukocytes were in the 40s and downtrended to 36.3 Patient does have a history of abdominal surgery therefore could likely have precipitated the SBO. General surgery saw the patient and recommended NG tube to low intermittent suction and to be followed by bowel series when decompressed. Patient had around 700 cc of output from the NG tube. No acute abdomen findings on physical exam. Plan: NG tube to low intermittent suction N.p.o. Zosyn given leukocytosis and lactic acidosis and elevated procalcitonin. Order bowel series once patient's output from NG tube decreases. General surgery consulted, appreciate recommendations #ERNESTO on CKD Patient came in with creatinine of 3.3 from his baseline around 1.4 Patient's bicarb was 32 with an anion gap of 15 initially and downtrended to anion gap of 12 Patient's difficulty with voiding. ERNESTO could be secondary to low p.o. intake versus decreased urination due to obstruction given that patient had some Plan: IV fluids Avoid nephrotoxic agents Renally dose medication Follow-up on daily CMP's Monitor patient's urine output #Electrolyte imbalance #Hyperkalemia #Hypochloremia #Hyperphosphatemia #Hypocalcemia Patient is potassium was 5.3, chloride 91, phosphorus was 8, and calcium was 8.4. Plan: IV fluids Will replete as necessary Follow-up on morning CMP #DM2 #Hyperglycemia Patient came in with glucose of 419 on CMP Patient takes insulin at home and Jardiance. Last A1c was 8.5 in 12/2023 Plan: ISS every 6 hours Insulin degludec 15 units x 1 Degludec 10 units at bedtime Hypoglycemia protocol ordered AM A1c ordered. #Lactic acidosis, resolved Chronic diseases: #HTN #HLD Disposition: Patient admitted to telemetry for high grade SBO Diet: NPO GI prophylaxis: protonix DVT prophylaxis: SCDs Code: Full Case disclosed with Attending Dr. Roberto Robbins PGY2 Disclaimer: Even though this this note was dictated by speech recognition and even though it was carefully revised there may still be minor errors in graphic design specialist due to voice recognition software. Attending Provider Attestation/Addendum Rowan, Julisa Mejia DO, attest that I was physically present for the mcdonnell portions of the service and evaluated the patient with the resident and I reviewed and discussed the case with the resident and agree with the resident's findings and plans of care as documented above Patient is an 80-year-old male past medical history of type 2 diabetes, hypertension, hyperlipidemia, gastric ulcer who presents to the ED due to constipation and 3 weeks of worsening abdominal pain and distention. Patient noted to have a firm and tender abdomen with a palpable mass in the right upper quadrant. He denies any fevers, chills, endorses having nausea, vomiting. He endorses having poor p.o. intake for the past [address] abdomen pelvis was done in the ED showing SBO with edema in the mesentery. A leukocytosis of 40.1, hemoglobin 16.4 hypochloremia of 88, carbon dioxide 18.2, anion 15 and creatinine at 3.3 glucose 419. Surgery was consulted from the ED and recommended NG tube to LIS. Later followed by Gastrografin small bowel follow-through. Patient had about 700 mL of dark red output from NG. Patient received IV fluids, morphine, and 5 units of regular insulin in the ED. Blood glucose improved to the 300s. Will admit patient to telemetry for further workup and medical management of SBO, ERNESTO and hyperglycemia. Will continue with pain control, IV fluid hydration and started on IV Zosyn. Will monitor fluid status closely. Started patient on 15 units of degludec as he uses 25 units at home and currently is n.p.o. will monitor blood glucose closely, due to drop degludec to lower dose due to lack of p.o. intake. Will initiate small bowel follow-through in the a.m. once NG output slows down and tube can be clamped. Will follow-up with surgery recommendations as well.
[2025-09-21 21:07] LABS: Collection Type, Urine Clean Catch
--- NOTE | 2025-09-21 21:09 | PC.NURSE ---
bina Horton RN
[2025-09-21] MEDS: PIPER/TAZO 3.375 GM PREMIX 3.375 GM/50 ML BAG IV (21:16)
[2025-09-21 21:21] LABS: Bilirubin,Urine Negative (Negative); Blood,Urine Negative (Negative); Clarity,Urine Clear (Clear/Hazy); Color,Urine Yellow (Lt Yel-Yel); Culture Indicated,Urine Not Indicated; Glucose, Urine 4+ (Negative); Ketones,Urine Negative (Negative); Leukocyte Esterase,Urine Negative (Negative); Nitrite,Urine Negative (Negative); PH,Urine 5.5 (5.0-7.0); Protein,Urine Trace (Neg - Trace); RBC,Urine 2 /hpf (0-3); Specific Gravity,Urine 1.022 (1.001-1.035); Squamous Epithelial Cell,Urine < 1 /hpf (0-5); Urobilinogen,Urine 2.0 mg/dL (0.0-1.0); WBC,Urine 3 /hpf (0-5)
[2025-09-21 21:24] LABS: Amphetamine/Methamp Scrn,U Negative (Negative); Barbiturate Screen,Urine Negative (Negative); Benzodiazepines Screen,Urine Negative (Negative); Benzoylecgonine Screen, Ur Negative (Negative); Fentanyl Screen,Urine Negative (Negative); Opiate Screen,Urine Positive (Negative); THC Screen,Urine Negative (Negative)
--- NOTE | 2025-09-21 21:28 | PC.NURSE ---
Report received, pt arrived to room 370 via [facility] NGT in place pt able to ambulate to the bed minimal assist needed, oriented to room call light within reach.
[2025-09-21 21:29] LABS: Albumin, Serum 3.4 gm/dL (3.4-4.8); Anion Gap 12 (7-16); BUN/Creatinine Ratio 23 Ratio (12-20); Blood Urea Nitrogen 72 mg/dL (9-23); Calcium 8.2 mg/dL (8.3-10.6); Calcium (Corrected) 8.7 mg/dL (8.5-10.1); Carbon Dioxide 32.3 mMol/L (20.0-31.0); Chloride 94 mMol/L (98-107); Creatinine (Component) 3.2 mg/dL (0.6-1.3); Estimated Creatinine Clearance 19.4 mL/min (>60); Glucose 342 mg/dL (74-106); Osmolality,Calculated 310 (275-295); Phosphorous 8.0 mg/dL (2.4-5.1); Potassium 4.4 mMol/L (3.4-5.1); Sodium 138 mMol/L (136-145); eGFR 19 See Note
[2025-09-21] MEDS: INSULIN LISPRO (AdmeLOG) 1 UNIT/0.01 ML UNIT SC (22:16)
[2025-09-21] MEDS: INSULIN DEGLUDEC 5 UNIT/0.05 ML (PER 5 UNITS) 15 UNIT SC (22:21)
[2025-09-21] MEDS: MORPHINE SULF INJ 4 MG/ML VIAL 2 MG IVP (22:21)
--- NOTE | 2025-09-21 23:52 | PC.NURSE ---
Pt does not recall home medications stated that his daughter already took them home and she lives in [place]. Informed if he could call daughter to snap picture, make list or bring medication back if she visits him. Pt stated he will call her in AM
[2025-09-22] VITALS (18 sets, daily range): BP systolic 90–129; BP diastolic 44–59; PULSE 73–97; RESP 15–85; TEMP 36–36.6; O2SAT 91–96; BMI 28.7
[2025-09-22] MEDS: SODIUM CHLORIDE 0.9% 1000 ML 1,000 ML 80 ML IV (00:22)
[2025-09-22] MEDS: INSULIN LISPRO (AdmeLOG) 1 UNIT/0.01 ML UNIT SC ×2 (01:28→23:03)
[2025-09-22] MEDS: MORPHINE SULF INJ 4 MG/ML VIAL 2 MG IVP ×3 (01:32→12:10)
[2025-09-22] MEDS: PIPER/TAZO 3.375 GM PREMIX 3.375 GM/50 ML BAG IV ×2 (05:21→21:11)
[2025-09-22 06:19] LABS: Basophils # (Auto) 0.2 Thou/mm3 (0.0-0.2); Basophils % (Auto) 0 % (0-2.5); Eosinophils # (Auto) 0.0 Thou/mm3 (0.0-0.5); Eosinophils % (Auto) 0 % (0-10); Hematocrit 43.8 % (41.0-53.0); Hemoglobin 14.8 g/dL (13.5-16.0); Immature Granulocytes Auto 0.34 Thou/mm3 (0.00-0.00); Lymphocytes # (Auto) 0.8 Thou/mm3 (1.0-4.8); Lymphocytes % (Auto) 2 % (10-50); Mean Corpuscular HGB Conc 33.8 g/dl (31.0-37.0); Mean Corpuscular Hemoglobin 31.0 pg (25.0-35.0); Mean Corpuscular Volume 92 fL (80-100); Monocytes # (Auto) 1.0 Thou/mm3 (0.0-0.8); Monocytes % (Auto) 3 % (0-12); Neutrophils # (Auto) 35.1 Thou/mm3 (1.8-7.7); Neutrophils % (Auto) 94 % (37-80); Nucleated Red Blood Cell # 0.00 Thou/mm3 (0.00-0.00); Nucleated Red Blood Cell % 0 /100 WBC (0); Platelet Count 203 Thou/mm3 (140-440); RDW Standard Deviation 41.5 fL (35.1-43.9); Red Blood Count 4.78 Miln/mm3 (4.50-5.90)
[2025-09-22 06:35] LABS: Alanine Aminotransferase 33 U/L (10-49); Albumin, Serum 3.5 gm/dL (3.4-4.8); Albumin/Globulin Ratio 1.7 (1.2-2.2); Alkaline Phosphatase 231 U/L (46-116); Anion Gap 14 (7-16); Aspartate Amino Transferase 21 U/L (0-34); BUN/Creatinine Ratio 20 Ratio (12-20); Bilirubin,Total 0.9 mg/dL (0.3-1.2); Blood Urea Nitrogen 69 mg/dL (9-23); Calcium 8.1 mg/dL (8.3-10.6); Calcium (Corrected) 8.5 mg/dL (8.5-10.1); Carbon Dioxide 30.9 mMol/L (20.0-31.0); Chloride 98 mMol/L (98-107); Creatinine (Component) 3.4 mg/dL (0.6-1.3); Estimated Creatinine Clearance 18.4 mL/min (>60); Globulin 2.1 gm/dL (2.3-3.5); Glucose 227 mg/dL (74-106); Magnesium 4.8 mg/dL (1.6-2.6); Osmolality,Calculated 312 (275-295); Potassium 4.4 mMol/L (3.4-5.1); Sodium 143 mMol/L (136-145); Thyroid Stimulating Hormone 1.07 uIU/mL (0.55-4.78); Total Protein 5.6 gm/dL (5.7-8.2); eGFR 17 See Note
[2025-09-22 07:00] LABS: Glucose Estimated Average 249 mg/dL (80-131); Hemoglobin A1C 10.3 % Hgb (4.8-6.0)
[2025-09-22 07:16] LABS: White Blood Count 37.5 Thou/mm3 (3.8-10.6)
--- NOTE | 2025-09-22 07:32 | PC.NURSE ---
Dr. Camacho aware of pt. fluid orders. orders continue NS at 80 ml/hr until bag is complete then start NS at 125 ml/hr. also aware of pt. renal labs BUN 69 and CR 3.4 and GFR 17, no consult for neprhology at this time, but Rn recs consult for neprhology. states I will consult with my team. No new orders at this time. also aware NG had 100 ml of output overnight. orders when NG output reaches 50 ml/hr notify me and we will start bowel series. No further orders at this time.
[2025-09-22 07:43] LABS: INR 1.0 (0.9-1.3); Partial Thromboplastin Time 30.3 Seconds (22.0-36.0); Prothrombin Time 10.8 Seconds (9.0-12.2)
--- NOTE | 2025-09-22 10:04 | ESPR_ITS ---
Documentation for date of: 09/22/25 Subjective Subjective Brief History: 80M with HTN, HLD, DMII presenting with abdominal distention. Pt states he has some nausea, had not been vomiting before arrival but did just have an episode in the ER. CT shows SBO, pt denies history of similar symptoms PMH: HTN, HLD, DMII PSHx: Cholecystectomy, pt reports he had a repair of gastric ulcer Meds: No antiplt or anticoagulation Allergies: NKDA Narrative: Pt reports feeling ok overall, similar to yesterday, passing gas but has not had a BM, had 150cc NG output overnight. Remaining afebrile with WBC 37 from 40 Exam Vital Signs Temp Pulse Resp BP Pulse Ox O2 Del Method O2 Flow Rate 97.6 F 80 19 107/54 L 93 L Nasal Cannula 3 09/22/25 08:00 09/22/25 08:00 09/22/25 08:00 09/22/25 08:00 09/22/25 08:00 09/22/25 08:00 09/22/25 08:00 Constitutional Constitutional: no acute distress Routine Respiratory Exam Respiratory: Present no resp distress Routine Abdominal Exam Abdominal: Present soft and distended (moderate distention); Absent tenderness Results Results: Laboratory Laboratory results: results reviewed Results: Imaging CT scan - abdomen: report reviewed and image reviewed Assessment & Plan Plan 80M with HTN, HLD, DMII presenting with abdominal distention, history of abdominal surgeries and findings of SBO, with significant leukocytosis and hyp erglycemia but hemodynamically normal with normal lactate Small bowel series Monitor finger sticks
--- NOTE | 2025-09-22 11:11 | ESPR_ITS ---
<Statement entered by Daryl Griffiths MD - 09/22/25 17:04> In summary: An 80-year-old male with a history of Type 2 Diabetes, hypertension, hyperlipidemia, and previous abdominal surgery for an ulcer was admitted with high-grade mechanical small bowel obstruction (SBO). He reported not having a bowel movement for three weeks, along with abdominal pain and distention. A CT scan confirmed SBO with mesenteric edema, and his white blood cell count was elevated but decreased over time. General surgery recommended an NG tube for decompression, with significant output, and planned an exploratory laparotomy. Other problems include ERNESTO on CKD with CR 1.4 > 3.3 likely pre-renal from poor oral intake vs post-renal obstruction from SBO. Will continue with IVF and repleate electrolytes as needed. He came with BG 419 which have improved with current managment. He is not in DKA. A1c 8.5 > 10.3 and will need better glycemic control upon discharge. I?ve reviewed the note and agree with this assessment and plan, with the exceptions outlined above. I personally went over the labs, imaging, home medications, and prior records, and examined the patient. The case was also reviewed with the attending physician. Please note: this document was transcribed using voice recognition technology; minor inaccuracies may be present. Daryl Griffiths, DO PGY II Documentation for date of: 09/22/25 Subjective Subjective Interval history: 80-year-old male with past medical history of DM2, hypertension, hyperlipidemia, and previous abdominal surgery due to an ulcer comes into the hospital with chief complaint of abdominal pain. Patient was told by his primary care physician to come into the ER as he had been having around 3 weeks of low oral intake along with some nausea, abdominal distention, and not having a bowel movement throughout this time either. Patient is a poor historian, but patient's daughter was at bedside even though she does not live with the patient she was able to tell me that he has been feeling unwell recently. Patient stated that he had not come to the hospital, but that today his primary care physician told him to come to the hospital and that his words had worsened today than days prior. He denies any vomiting or issues urinating. Otherwise has no other complaints at this time. 09/22/25: NANCY CARL, AF. Spoke with Dr. Sheppard, advised to proceed with surgery this afternoon given impressive CT scan for acute small bowel obstruction. It is likely that patient may have an appendicitis given his complaint of RLQ pain with leukocytosis, however, no peritoneal signs on exam or free air under diaphragm. WBC decreased from 40.1 to 37.5 this morning, will continue empiric antibiotics. Exam Vital Signs Temp Pulse Resp BP Pulse Ox O2 Del Method O2 Flow Rate 97.6 F 80 19 107/54 L 93 L Nasal Cannula 3 09/22/25 08:00 09/22/25 08:00 09/22/25 08:00 09/22/25 08:00 09/22/25 08:00 09/22/25 08:00 09/22/25 08:00 Narrative Exam General: Alert, oriented, in no acute distress. HEENT: Normocephalic, atraumatic. NG tube in place. Neck: Supple, no JVD, no lymphadenopathy or thyroid enlargement. Cardiovascular: Regular rate and rhythm. No murmurs, rubs, or gallops. Respiratory: Clear to auscultation bilaterally. No wheezes, rales, or rhonchi. Normal respiratory effort. Abdomen: Soft, nontender, however, extreme distended. No peritoneal signs. RLQ pain with palpation. Musculoskeletal: Full range of motion in all extremities. No joint swelling, tenderness, or deformities. Skin: Warm, dry, intact. No rashes or lesions. Objective Labs 09/26/25 04:52 09/26/25 04:52 Labs: Laboratory Results - last 24 hr 09/21/25 09/21/25 09/21/25 15:20 16:16 17:09 WBC 40.1 H* RBC 5.30 Hgb 16.4 H Hct 47.0 MCV 89 MCH 30.9 MCHC 34.9 RDW Std Deviation 39.2 Plt Count 243 Neut % (Auto) 92 H Lymph % (Auto) 2 L [place] % (Auto) 3 Eos % (Auto) 0 Baso % (Auto) 1 Neut # (Auto) 37.0 H Lymph # (Auto) 0.8 L [place] # (Auto) 1.3 H Eos # (Auto) 0.0 Baso # (Auto) 0.2 Immature Gran # (Auto) 0.80 H Absolute Nucleated RBC 0.00 Immature Gran % 2 H Nucleated RBC % 0 Smear Path Review Sent to Pathologist PT 10.9 INR 1.0 APTT 27.3 Puncture Site Right Radial ABG pH 7.51 H ABG pCO2 44 ABG pO2 69 L ABG HCO3 35 H ABG O2 Saturation 94 ABG Base Excess 11 H Oxygen Liter Flow 2 Sodium 135 L Potassium 4.8 Chloride 88 L Carbon Dioxide 32.2 H Anion Gap 15 BUN 65 H Creatinine 3.3 H Estim Creat Clear Calc 18.8 L eGFR 18 L BUN/Creatinine Ratio 20 Glucose 419 H* Estimated Ave Glu mg/dL Hemoglobin A1c Calculated Osmolality 306 H Lactic Acid 2.7 H Calcium 8.8 Corrected Calcium 8.8 Phosphorus Magnesium 4.6 H Total Bilirubin 1.5 H AST 33 ALT 46 Alkaline Phosphatase 254 H Lactate Dehydrogenase 207 Troponin I 0.032 B-Natriuretic Peptide 92 Total Protein 6.5 Albumin 4.0 Globulin 2.5 Albumin/Globulin Ratio 1.6 Beta-Hydroxybutyrate/Acetoacetate 0.9 H Procalcitonin 5.20 H TSH Ur Collection Type Urine Color Urine Clarity Urine pH Ur Specific [place] Urine Protein Urine Glucose (UA) Urine Ketones Urine Blood Urine Nitrite Urine Bilirubin Urine Urobilinogen (Auto) Ur Leukocyte Esterase Urine RBC Urine WBC Ur Squamous Epith Cells Urine Bacteria Ur Culture Indicated? Urine Opiates Screen Urine Fentanyl Screen Ur Barbiturates Screen U Amphetamin/Meth Scrn U Benzodiazepines Scrn U Cocaine Metab Screen U Marijuana (THC) Screen 09/21/25 09/21/25 09/21/25 17:29 19:59 20:50 WBC 36.3 H* RBC 5.01 Hgb 15.3 Hct 44.5 MCV 89 MCH 30.5 MCHC 34.4 RDW Std Deviation 39.2 Plt Count 199 D Neut % (Auto) 93 H Lymph % (Auto) 1 L [place] % (Auto) 3 Eos % (Auto) 0 Baso % (Auto) 0 Neut # (Auto) 33.7 H Lymph # (Auto) 0.5 L [place] # (Auto) 1.1 H Eos # (Auto) 0.0 Baso # (Auto) 0.2 Immature Gran # (Auto) 0.78 H Absolute Nucleated RBC 0.00 Immature Gran % 2 H Nucleated RBC % 0 Smear Path Review Sent to Pathologist PT INR APTT Puncture Site ABG pH ABG pCO2 ABG pO2 ABG HCO3 ABG O2 Saturation ABG Base Excess Oxygen Liter Flow Sodium 136 Potassium 5.3 H D Chloride 91 L Carbon Dioxide 31.4 H Anion Gap 14 BUN 75 H Creatinine 3.3 H Estim Creat Clear Calc 18.8 L eGFR 18 L BUN/Creatinine Ratio 23 H Glucose [address] Glu mg/dL Hemoglobin A1c Calculated Osmolality 311 H Lactic Acid 1.4 Calcium 8.0 L Corrected Calcium 8.4 L Phosphorus Magnesium Total Bilirubin 1.3 H AST 34 ALT 39 Alkaline Phosphatase 236 H Lactate Dehydrogenase Troponin I B-Natriuretic Peptide Total Protein 5.5 L Albumin 3.5 D Globulin 2.0 L Albumin/Globulin Ratio 1.8 Beta-Hydroxybutyrate/Acetoacetate Procalcitonin TSH Ur Collection Type Clean Catch Urine Color Yellow Urine Clarity Clear Urine pH 5.5 Ur Specific [place] 1.022 Urine Protein Trace Urine Glucose (UA) 4+ A Urine Ketones Negative Urine Blood Negative Urine Nitrite Negative Urine Bilirubin Negative Urine Urobilinogen (Auto) 2.0 Ur Leukocyte Esterase Negative Urine RBC 2 Urine WBC 3 Ur Squamous Epith Cells < 1 Urine Bacteria None Ur Culture Indicated? Not Indicated Urine Opiates Screen Positive A Urine Fentanyl Screen Negative Ur Barbiturates Screen Negative U Amphetamin/Meth Scrn Negative U Benzodiazepines Scrn Negative U Cocaine Metab Screen Negative U Marijuana (THC) Screen Negative 09/21/25 09/22/25 20:55 05:07 WBC 37.5 H* RBC 4.78 Hgb 14.8 Hct 43.8 MCV 92 MCH 31.0 MCHC 33.8 RDW Std Deviation 41.5 Plt Count 203 Neut % (Auto) 94 H Lymph % (Auto) 2 L [place] % (Auto) 3 Eos % (Auto) 0 Baso % (Auto) 0 Neut # (Auto) 35.1 H Lymph # (Auto) 0.8 L [place] # (Auto) 1.0 H Eos # (Auto) 0.0 Baso # (Auto) 0.2 Immature Gran # (Auto) 0.34 H Absolute Nucleated RBC 0.00 Immature Gran % 1 H Nucleated RBC % 0 Smear Path Review Cancelled PT 10.8 INR 1.0 APTT 30.3 Puncture Site ABG pH ABG pCO2 ABG pO2 ABG HCO3 ABG O2 Saturation ABG Base Excess Oxygen Liter Flow Sodium 138 143 Potassium 4.4 D 4.4 Chloride 94 L 98 Carbon Dioxide 32.3 H 30.9 Anion Gap 12 14 BUN 72 H 69 H Creatinine 3.2 H 3.4 H Estim Creat Clear Calc 19.4 L 18.4 L eGFR 19 L 17 L BUN/Creatinine Ratio 23 H 20 Glucose 342 H D [address] Glu mg/dL 249 H Hemoglobin A1c 10.3 H Calculated Osmolality 310 H 312 H Lactic Acid Calcium 8.2 L 8.1 L Corrected Calcium 8.7 8.5 Phosphorus 8.0 H Magnesium 4.8 H Total Bilirubin 0.9 AST 21 ALT 33 Alkaline Phosphatase 231 H Lactate Dehydrogenase Troponin I B-Natriuretic Peptide Total Protein 5.6 L Albumin 3.4 3.5 Globulin 2.1 L Albumin/Globulin Ratio 1.7 Beta-Hydroxybutyrate/Acetoacetate Procalcitonin TSH 1.07 Ur Collection Type Urine Color Urine Clarity Urine pH Ur Specific [place] Urine Protein Urine Glucose (UA) Urine Ketones Urine Blood Urine Nitrite Urine Bilirubin Urine Urobilinogen (Auto) Ur Leukocyte Esterase Urine RBC Urine WBC Ur Squamous Epith Cells Urine Bacteria Ur Culture Indicated? Urine Opiates Screen Urine Fentanyl Screen Ur Barbiturates Screen U Amphetamin/Meth Scrn U Benzodiazepines Scrn U Cocaine Metab Screen U Marijuana (THC) Screen ABG Interpretation ABG results: 09/21/25 17:09 ABG pH 7.51 H ABG pCO2 44 ABG pO2 69 L ABG HCO3 35 H ABG O2 Saturation 94 ABG Base Excess 11 H Quality Measures Quality Measures VTE prophylaxis Advance care planning discussed with:: patient Assessment & Plan Assessment Current Active Medications: Generic Name Dose Route Start Last Admin Trade Name Freq PRN Reason Stop Dose Admin Dextrose 25 ml 09/21/25 20:20 Dextrose 50%-Water Inj 50 Ml Syringe IV 10/21/25 20:19 Q15MIN PRN BG 50-70 responsive npo pt Dextrose 50 ml 09/21/25 20:20 Dextrose 50%-Water Inj 50 Ml Syringe IV 10/21/25 20:19 Q15MIN PRN BG <50 OR BG <70 & pt unresponsive Glucagon 1 mg 09/21/25 20:20 Glucagon Inj 1 Mg Vial IM Q15MIN PRN BG <70, and no IV access Sodium Chloride 1,000 mls @ 125 mls/hr 09/21/25 15:58 09/22/25 00:22 Ns IV 10/21/25 15:57 Infused .Q8H RED Infusion Piperacillin/Tazobactam/Dextrose 3.375 gm in 50 mls @ 12.5 mls/hr 09/22/25 06:00 09/22/25 05:21 Zosyn IV 09/29/25 05:59 12.5 mls/hr Q8HR RED Administration Protocol Insulin Degludec 10 unit 09/22/25 21:00 Insulin Degludec 5 Unit/0.05 Ml (Per 5 Units) SC 10/22/25 20:59 QDAY@2100 RED Insulin Human Lispro 0 unit 09/22/25 07:45 09/22/25 08:14 Insulin Lispro (Admelog) 1 Unit/0.01 Ml Unit SC 10/22/25 07:44 Not Given Q6HR [facility] Protocol Morphine Sulfate 2 mg 09/21/25 20:10 09/22/25 08:10 Morphine Sulf Inj 4 Mg/Ml Vial IVP 09/26/25 20:09 2 mg Q2H PRN Administration PAIN SCALE 4-10(Mod-Sev Ondansetron HCl 4 mg 09/21/25 20:10 Ondansetron Inj 2 Mg/Ml Inj 2 Ml IVP 10/21/25 20:09 Q6H PRN NAUSEA OR VOMITING Protocol Pantoprazole Sodium 40 mg 09/21/25 20:15 09/22/25 08:10 Pantoprazole Inj 40 Mg Vial IVP 10/21/25 20:14 40 mg QDAY [facility] Administration Plan 80-year-old male with past medical history of DM2, hypertension, hyperlipidemia, and previous abdominal surgery due to an ulcer was admitted to the hospital due to SBO, high grade. #High grade SBO, mechanical #Leukocytosis #Abdominal distention Patient came in with complaints of not having bowel movement for around 3 weeks along with abdominal distention and abdominal pain. Patient was sent over to the ER by his primary care physician Abdomen/pelvis CT that showed high-grade mechanical SBO with some mesenteric edema. Leukocytes were in the 40s and downtrended to 36.3 Patient does have a history of abdominal surgery therefore could likely have precipitated the SBO. General surgery saw the patient and recommended NG tube to low intermittent suction and to be followed by bowel series when decompressed. Patient had around 700 cc of output from the NG tube. No acute abdomen findings on physical exam. Plan: - NG tube to low intermittent suction - N.p.o. - Continue Zosyn (12/23 ~) - General surgery consulted, appreciate recommendations --> Ex-lap today with GenSurg. #ERNESTO on CKD Patient came in with creatinine of 3.3 from his baseline around 1.4 Patient's bicarb was 32 with an anion gap of 15 initially and downtrended to anion gap of 12 Patient's difficulty with voiding. ERNESTO could be secondary to low p.o. intake versus decreased urination due to obstruction given that patient had some Plan: - IV fluids - Avoid nephrotoxic agents - Renally dose medication - Follow-up on daily CMP's - Monitor patient's urine output #Electrolyte imbalance #Hyperkalemia #Hypochloremia #Hyperphosphatemia #Hypocalcemia #Lactic acidosis, resolved Patient is potassium was 5.3, chloride 91, phosphorus was 8, and calcium was 8.4. Plan: - IV fluids - Will replete as necessary - Follow-up on morning CMP #DM2 #Hyperglycemia Chronic medical problems Patient came in with glucose of 419 on CMP Patient takes insulin at home and Jardiance. Last A1c was 8.5 in 12/2023 Plan: - ISS - Hypoglycemic protocol in place. - Insulin degludec 15 units x 1 - Degludec 10 units at bedtime - A1c --> 10.3 #HTN #HLD Chronic medical problems - Resume home BP meds, hold today given soft BP - Resume home atorvastatin after surg. Disposition: Patient admitted to telemetry for high grade SBO Diet: NPO GI prophylaxis: Protonix DVT prophylaxis: SCDs Code: Full Case discussed with my senior resident Dr. Griffiths Case discussed with my attending Dr. Roberto Schrader DO PGY 1 Attending Provider Attestation/Addendum Julisa Donahue DO, attest that I was physically present for the mcdonnell portions of the service and evaluated the patient with the resident and I reviewed and discussed the case with the resident and agree with the resident's findings and plans of care as documented above Patient seen and evaluated this AM. He continues to have abdominal pain and coffee ground output noted from NG tube. Patient endorses some improvement with NG decompression. Abdomen appears less distended than on odmission, but remains significant and has tenderness to palpation. Firm mass noted in right mid abdominal region. Will continue with NGT decompression. Once output slows down, will do gastrograffin small bowel follow through. Patient denies any shortness of breath, fevers, chills, chest pain or vomiting.? Delayed signature due to inability to log onto [employer] from remote access. Attestation was written within 24h of seeing patient.
[2025-09-22] MEDS: SODIUM CHLORIDE 0.9% 1000 ML 1,000 ML 125 ML IV ×2 (12:15→18:01)
--- NOTE | 2025-09-22 14:40 | PD.SURCONS ---
HPI Consult details Consult date: 09/22/25 Reason for consultation narrative: The patient was seen in consultation at the request of Dr. Morton who was consulted him yesterday. This patient was seen because of the abdominal distention and abdominal pain History of present illness: History of present illness revealed that the patient has been sick for the past 3 or 4 days and he was not eating well and he has not had a bowel movement for 5 days. He noticed increasing abdominal distention and went to his family physician in [place] who immediately sent him to the emergency room. Patient denies any history of vomiting but has not been passing much flatus and had 1 bowel movement yesterday which is very small. Patient denies any such problems in the past. His past medical history revealed the patient had a history of hypertension diabetes mellitus hyperlipidemia and history of renal failure recently diagnosed. Past surgery consist of laparoscopic cholecystectomy and colonoscopy in 2011 and perforated peptic ulcer closure done in 2011 also in this hospital. Patient has any history of cardiac problems is not any blood thinners. He is a smoker smoking about a pack per day for many years and he was taking in the past but he has stopped now except on occasions and he was mostly drinking beer patient is retired. Past Medical History Past Medical History NEUROLOGIC: Negative Neurological Disorders or Seizures CARDIAC: Positive Cardiac Disorders, Hypercholesterolemia, Hypertension and Hypotension; Negative Congestive Heart Failure RESPIRATORY: Negative Respiratory Disorders or Chronic Obstructive Pulmonary Disease (COPD) GASTROINTESTINAL: Positive Gall Bladder Disease and Ulcer; Negative Gastrointestinal Disorders or Hepatitis GENITOURINARY: Negative Genitourinary Disorders or Renal Disease REPRODUCTIVE: Negative Fibroids MUSCULOSKELETAL: Negative Musculoskeletal Disorders ENT: Negative History of ENT Problems ENDOCRINE: Positive Endocrine Disorders and Diabetes Mellitus Type 2 (U); Negative Diabetes Mellitus Type 1 HEMATOLOGIC: Negative Blood Disorders OTHER HISTORY: Positive Chicken Pox; Negative Autoimmune Disease, Blood Transfusions, Blood Transfusion Reaction, Anesthesia Reactions, Organ Transplant, MRSA, Human Immunodeficiency Virus (HIV), Measles, Mumps, Rubella ([place] Measles), Pertussis, Clostridium Difficile or Cancer Surgical History SURGICAL: Positive Abdominal Surgery; Negative Cardiac Surgery, Endocrine Surgery, Penile Implant, Nephrectomy, Ureteral Stent, Transurethral Resection, Joint Replacement, Neurologic Surgery, Vasectomy, Organ Transplant or ESWL Social History SMOKING STATUS: Never smoker Travel History EBOLA RISK: No Meds Home Medications and Allergies Home Medications ?Medication ?Instructions ?Recorded ?Confirmed ?Type atorvastatin 10 mg tablet 10 mg PO DAILY 09/22/25 09/22/25 History empagliflozin 25 mg tablet 25 mg PO DAILY 09/22/25 09/22/25 History (Jardiance) ergocalciferol (vitamin D2) 1,250 1,250 mcg PO QWEEK 09/22/25 09/22/25 History mcg (50,000 unit) capsule (Vitamin D2) lisinopril 30 mg tablet 30 mg PO DAILY 09/22/25 09/22/25 History magnesium oxide 400 mg PO QDAY 09/22/25 09/22/25 History Allergies Allergy/AdvReac Type Severity Reaction Status Date / Time No Known Allergies Allergy Verified 08/28/21 18:55 Exam Vital Signs Temp Pulse Resp BP Pulse Ox O2 Del Method O2 Flow Rate 97.8 F 73 18 90/56 L 93 L Nasal Cannula 3 09/22/25 12:00 09/22/25 12:00 09/22/25 12:00 09/22/25 12:00 09/22/25 12:00 09/22/25 12:00 09/22/25 12:00 Narrative Exam Physical examination revealed slightly obese male who speaks some Chinese he is 5 feet 9 inches tall weighing 194 pounds with BMI of 28.7 his vital signs are normal even though blood pressure is at the borderline Constitutional Constitutional: severe distress Routine Respiratory Exam Comments: Patient revealed diminished breath sounds on both sides Routine Cardiovascular Exam Comments: Sinus rhythm Routine Abdominal Exam Comments: Abdomen is very distended and patient has surgical scar in the upper abdomen from the previous closure of perforation. Patient has some tenderness small through the abdomen probably because of distention but his tenderness is very severe over the right lower quadrant over the McBurney's point and just above the McBurney's point. Bowel sounds are hypoactive. Routine Rectal Exam Comments: Deferred because of the patient's pain Routine Exam Comments: Indwelling [place] catheter which is draining clear urine Routine Extremities Exam Comments: Within normal limits Results Results: Laboratory Laboratory Narrative: Patient's laboratory workup showed marked elevation of the WBC to 14,000 which has come down to 37,000 Results: Imaging Imaging narrative: CT scan of the abdomen showed dilated small bowel with possible edema over the mesentery of the distal small bowel. High-grade small bowel obstruction was seen on the CT scan Assessment & Plan Additional Assessment Additional comments: Impression: Small bowel obstruction possibly secondary to intra-abdominal infection Hypertension Diabetes Acute kidney injury Mild obesity Plan Plan: Patient does not seem to have a small bowel obstruction. The dilated loops of small bowel may be secondary to what is going on in the abdomen. I strongly suspect focus of infection in the right lower quadrant. He may even have a gangrene of the small bowel or from strangulated obstruction. I advised the patient to undergo exploration and possible resection of the bowel if needed. I cannot also rule out colonic lesions because his colonoscopy was about 13 years ago. Patient's condition at this age seems stable but critical. I have advised patient's family that he requires explored laparotomy and indicated procedure. They are agreeable.
--- NOTE | 2025-09-22 16:36 | PC.SS ---
CERTIFIED FORKLIFT OPERATOR conducted bedside contact with the patient conduct initial assessment and to discuss discharge planning.? At bedside with patient was daughter, Eleni Interiano .? Patient not present undergoing surgical procedure.? Daughter provided information for assessment and discharge planning.? Patient resides alone at home.? Patient does not utilize DME to assist with ambulation.? Patient does not utilize home oxygen.? Patient is able to complete ADL?s independently.? Patient?s surrogate medical decision maker is daughter, Eleni Interiano.? Daughter could not recall name of patient?s PCP.? PCP located in [place]. ?The patient does not possess any specialty providers.? The patient does not participate with dialysis.? The patient possess diabetes.? Patient utilizes [facility] for medication services.? Discharge plan is for the patient to return home at the time of discharge.? Family will provide transportation on behalf of the patient.? If home health recommended family prefers [facility].? Chart review indicates patient aligned with home health in the past.? No further discharge needs identified by the patient?s daughter.? No further intervention required at this time, addiction social worker will be available to address any further concerns.? Next of Kin: Eleni Interiano D/C Plan: Home
--- NOTE | 2025-09-22 16:38 | PC.SS ---
Daughter provided STORY TELLER with PCP phone number [phone], response. Unable to confirm PCP.
--- NOTE | 2025-09-22 17:09 | ESOP_ITS ---
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 Abdomen was prepped with ChloraPrep solution and draped in a sterile manner. Timeout was performed. Lower midline incision was made starting few centimeters above the umbilicus all the way down to the pubic symphysis. Exploration revealed extremely distended small bowel. After delivering the small bowel I was able to examine the terminal portion of the ileum and patient is found to have ischemia of the ileum for about 1 foot in length. It was also very much dilated and was ready to perforate. Distal portion of the ileum about 1 or 2 feet from the ileocecal junction was normal. Appendix was normal. I released the adhesions that was holding down the bowel to relieve the obstruction. I used a DAVIS 55 and divided the ileum that was normal in size. Then I also stapled a DAVIS 55 in the proximal portion of the ischemic small bowel which was terminal ileum. The mesentery was divided using Enseal for controlling the bleeding. At the base of the mesentery there were large masses suggesting of carcinoid tumor or lymphoma. I thought of exploring and removing the entire bowel but it was going all the way to the root of the mesentery and I was worried about losing blood supply to the small bowel. This was however mobile and could be resected but the small bowel might be ischemic. Therefore it did biopsy by excising those masses. Frozen section could not be obtained but it was sent for final section. Then the proximal small bowel was decompressed using suction tube and then anastomosed in a functional end-to-end fashion using DAVIS 55. The rent in the mesentery was closed with 3-0 silk pop-off. Wound was then extensively irrigated and the small bowel was found to be satisfactorily decompressed. No contamination occurred. The wound was then closed in a layer using 0 PDS and I injected half percent Marcaine for analgesia over the anterior incision. Skin was closed with lennie and this was applied with Adaptic and 4 x 4 gauze and tape and patient tolerated the procedure well. Anesthesia GETA Pathology / specimen Other (1. Mesenteric mass, #2 small bowel mostly terminal ileum with ischemia) IVF Infused 1,500 Estimated Blood Loss 100 Condition Stable Disposition PACU Surgeon Nabeel Krishna MD Surgical Staff Operation Date: 09/22/25 14:15 Case Staff Anesthesiologist: Ace Guevara RNsenior market research analyst: Ginger Krishna
--- NOTE | 2025-09-22 17:40 | SUR.PHASEI ---
Midline abd. dressing remains C/D/I. [place] catheter intact, draining straw colored urine, no sedament noted. Responding to questions and commands appropriately.
--- NOTE | 2025-09-22 18:39 | PC.NURSE ---
Pt. family at bedside requesting information from procedure, called to Dr. Skelton and Dr. Skelton states No I cannot talk to them right now I am in a meeting and I already tried to call them, I called the son after the surgery and I went to the waiting room and no one was there. No! tell them to wait, I will call them later around 1929
[2025-09-23] VITALS (12 sets, daily range): BP systolic 107–135; BP diastolic 55–66; PULSE 67–96; RESP 17–19; TEMP 36.1–36.7; O2SAT 93–96; BMI 28.7; BMI 28.8
[2025-09-23] MEDS: SODIUM CHLORIDE 0.9% 1000 ML 1,000 ML 125 ML IV (01:50)
[2025-09-23] MEDS: INSULIN LISPRO (AdmeLOG) 1 UNIT/0.01 ML UNIT SC ×4 (05:28→23:51)
[2025-09-23] MEDS: PIPER/TAZO 3.375 GM PREMIX 3.375 GM/50 ML BAG IV ×3 (05:29→21:09)
[2025-09-23 05:33] LABS: Basophils # (Auto) 0.0 Thou/mm3 (0.0-0.2); Basophils % (Auto) 0 % (0-2.5); Eosinophils # (Auto) 0.0 Thou/mm3 (0.0-0.5); Eosinophils % (Auto) 0 % (0-10); Hematocrit 38.9 % (41.0-53.0); Hemoglobin 12.6 g/dL (13.5-16.0); Immature Granulocytes Auto 0.11 Thou/mm3 (0.00-0.00); Lymphocytes # (Auto) 0.4 Thou/mm3 (1.0-4.8); Lymphocytes % (Auto) 2 % (10-50); Mean Corpuscular HGB Conc 32.4 g/dl (31.0-37.0); Mean Corpuscular Hemoglobin 31.0 pg (25.0-35.0); Mean Corpuscular Volume 96 fL (80-100); Monocytes # (Auto) 0.6 Thou/mm3 (0.0-0.8); Monocytes % (Auto) 3 % (0-12); Neutrophils # (Auto) 18.3 Thou/mm3 (1.8-7.7); Neutrophils % (Auto) 94 % (37-80); Nucleated Red Blood Cell # 0.00 Thou/mm3 (0.00-0.00); Nucleated Red Blood Cell % 0 /100 WBC (0); Platelet Count 171 Thou/mm3 (140-440); RDW Standard Deviation 45.8 fL (35.1-43.9); Red Blood Count 4.06 Miln/mm3 (4.50-5.90); White Blood Count 19.5 Thou/mm3 (3.8-10.6)
[2025-09-23 06:18] LABS: Alanine Aminotransferase 19 U/L (10-49); Albumin, Serum 3.0 gm/dL (3.4-4.8); Albumin/Globulin Ratio 1.7 (1.2-2.2); Alkaline Phosphatase 140 U/L (46-116); Anion Gap 15 (7-16); Aspartate Amino Transferase 14 U/L (0-34); BUN/Creatinine Ratio 23 Ratio (12-20); Bilirubin,Total 0.9 mg/dL (0.3-1.2); Blood Urea Nitrogen 79 mg/dL (9-23); Calcium 7.5 mg/dL (8.3-10.6); Calcium (Corrected) 8.3 mg/dL (8.5-10.1); Carbon Dioxide 24.2 mMol/L (20.0-31.0); Chloride 108 mMol/L (98-107); Creatinine (Component) 3.4 mg/dL (0.6-1.3); Estimated Creatinine Clearance 18.4 mL/min (>60); Globulin 1.8 gm/dL (2.3-3.5); Glucose 215 mg/dL (74-106); Magnesium 4.3 mg/dL (1.6-2.6); Osmolality,Calculated 322 (275-295); Potassium 4.8 mMol/L (3.4-5.1); Sodium 147 mMol/L (136-145); Total Protein 4.8 gm/dL (5.7-8.2); eGFR 17 See Note
--- NOTE | 2025-09-23 07:37 | XR_ITS ---
Examination: Retroperitoneal ultrasound, complete Technique: Multiple high resolution grayscale images of the retroperitoneum obtained, including kidneys and bladder. Exam date and time: September 23, 2025, 0749 hours Acute renal insufficiency on laboratory examination this week. FINDINGS: Right kidney 10.0 cm renal cortex 2.2 cm Left kidney 11.5 cm renal cortex 1.9 cm Moderate renal scarring Minimal right perinephric stranding No renal calculi or hydronephrosis Bandaging obscures imaging for bladder and prostate IMPRESSION: Moderate renal scarring No hydronephrosis or renal calculi
[2025-09-23] MEDS: CALCIUM GLUC/NS 1000MG IVPB 1,000 MG/50 ML BAG 50 MG IV (08:29)
[2025-09-23] MEDS: ENOXAPARIN SOD INJ 40 MG/0.4 ML SYRINGE SC (08:30)
[2025-09-23] MEDS: DEXTROSE 5%-NS 1,000 ML 125 ML IV ×2 (08:37→19:28)
[2025-09-23] MEDS: MORPHINE SULF INJ 4 MG/ML VIAL IVP ×2 (08:50→17:34)
--- NOTE | 2025-09-23 09:01 | ESPR_ITS ---
<Statement entered by Jack Reinoso MD - 09/26/25 12:57> I reviewed above note and agree with findings and plans. I have also personally examined the patient with medicine team and went over assessment and plan with medical team including grinder set up operator internal and resident physician. <Statement entered by Daryl Griffiths MD - 09/23/25 16:07> In summary: An 80-year-old male with a history of Type 2 Diabetes, hypertension, hyperlipidemia, and previous abdominal surgery for an ulcer was admitted with high-grade mechanical small bowel obstruction (SBO). He reported not having a bowel movement for three weeks, along with abdominal pain and distention. A CT scan confirmed SBO with mesenteric edema, and his white blood cell count was elevated but decreased over time. 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 General surgery was also secondary to diffuse carcinoid nodule throughout the colon and had recommended outpatient referral for tertiary center for management. For now we have ordered carcinoid markers which are currently pending. Continue remained stable around 3.2?3.4 and he appears euvolemic. Likely has worsening of his CKD but will continue with IV fluids and watch for improvement. I?ve reviewed the note and agree with this assessment and plan, with the exceptions outlined above. I personally went over the labs, imaging, home medications, and prior records, and examined the patient. The case was also reviewed with the attending physician. Please note: this document was transcribed using voice recognition technology; minor inaccuracies may be present. Daryl Griffiths DO PGY II Documentation for date of: 09/23/25 Subjective Subjective Interval history: 80-year-old male with past medical history of DM2, hypertension, hyperlipidemia, and previous abdominal surgery due to an ulcer comes into the hospital with chief complaint of abdominal pain. Patient was told by his primary care physician to come into the ER as he had been having around 3 weeks of low oral intake along with some nausea, abdominal distention, and not having a bowel movement throughout this time either. Patient is a poor historian, but patient's daughter was at bedside even though she does not live with the patient she was able to tell me that he has been feeling unwell recently. Patient stated that he had not come to the hospital, but that today his primary care physician told him to come to the hospital and that his words had worsened today than days prior. He denies any vomiting or issues urinating. Otherwise has no other complaints at this time. 09/22/25: MESERET, VSS, AF. Spoke with Dr. Sheppard, advised to proceed with surgery this afternoon given impressive CT scan for acute small bowel obstruction. It is likely that patient may have an appendicitis given his complaint of RLQ pain with leukocytosis, however, no peritoneal signs on exam or free air under diaphragm. WBC decreased from 40.1 to 37.5 this morning, will continue empiric antibiotics. 09/23/25: S/p ex-lap with small bowel resection and end-to-end anastomosis. Patient tolerated the procedure well, reports moderate amount of pain. PRN pain reg in place. Pending return of bowel function prior to resume diet. Nephrology was consulted for ERNESTO, recs IV fluid resuscitation. D5NS started with rate of 125ml/hr. 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 choromogranin a sent. Exam Vital Signs Temp Pulse Resp BP Pulse Ox O2 Del Method O2 Flow Rate 97.4 F 77 19 107/57 L 94 L Nasal Cannula 2 09/23/25 08:39 09/23/25 08:39 09/23/25 08:39 09/23/25 08:39 09/23/25 08:39 09/23/25 08:39 09/23/25 08:39 Narrative Exam General: Alert, oriented, in no acute distress. HEENT: Normocephalic, atraumatic. Neck: Supple, no JVD, no lymphadenopathy or thyroid enlargement. Cardiovascular: Regular rate and rhythm. No murmurs, rubs, or gallops. Respiratory: Clear to auscultation bilaterally. No wheezes, rales, or rhonchi. Normal respiratory effort. Abdomen: Soft, nontender. No peritoneal signs. Midline incision dressed, dry and intact. Musculoskeletal: Full range of motion in all extremities. No joint swelling, tenderness, or deformities. Skin: Warm, dry, intact. No rashes or lesions. Objective Labs 09/23/25 04:50 09/23/25 04:50 Labs: Laboratory Results - last 24 hr 09/22/25 09/23/25 05:07 04:50 WBC 19.5 H D RBC 4.06 L Hgb 12.6 L D Hct 38.9 L MCV 96 MCH 31.0 MCHC 32.4 RDW Std Deviation 45.8 H Plt Count 171 D Neut % (Auto) 94 H Lymph % (Auto) 2 L [place] % (Auto) 3 Eos % (Auto) 0 Baso % (Auto) 0 Neut # (Auto) 18.3 H Lymph # (Auto) 0.4 L [place] # (Auto) 0.6 Eos # (Auto) 0.0 Baso # (Auto) 0.0 Immature Gran # (Auto) 0.11 H Absolute Nucleated RBC 0.00 Immature Gran % 1 H Nucleated RBC % 0 Smear Path Review Cancelled Sodium 147 H Potassium 4.8 Chloride 108 H Carbon Dioxide 24.2 Anion Gap 15 BUN 79 H Creatinine 3.4 H Estim Creat Clear Calc 18.4 L eGFR 17 L BUN/Creatinine Ratio 23 H Glucose 215 H Calculated Osmolality 322 H Calcium 7.5 L Corrected Calcium 8.3 L Magnesium 4.3 H Total Bilirubin 0.9 AST 14 ALT 19 Alkaline Phosphatase 140 H D Total Protein 4.8 L Albumin 3.0 L D Globulin 1.8 L Albumin/Globulin Ratio 1.7 ABG Interpretation ABG results: 09/21/25 17:09 ABG pH 7.51 H ABG pCO2 44 ABG pO2 69 L ABG HCO3 35 H ABG O2 Saturation 94 ABG Base Excess 11 H Quality Measures Quality Measures VTE prophylaxis Advance care planning discussed with:: patient Assessment & Plan Assessment Current Active Medications: Generic Name Dose Route Start Last Admin Trade Name Freq PRN Reason Stop Dose Admin Acetaminophen 650 mg 09/22/25 17:49 Acetaminophen 325 Mg Tablet PO 10/22/25 17:48 Q6HR PRN [id number] Dextrose 25 ml 09/21/25 20:20 Dextrose 50%-Water Inj 50 Ml Syringe IV 10/21/25 20:19 Q15MIN PRN BG 50-70 responsive npo pt Dextrose 50 ml 09/21/25 20:20 Dextrose 50%-Water Inj 50 Ml Syringe IV 10/21/25 20:19 Q15MIN PRN BG <50 OR BG <70 & pt unresponsive Enoxaparin Sodium 40 mg 09/23/25 09:00 09/23/25 08:30 Enoxaparin Sod Inj 40 Mg/0.4 Ml Syringe SC 10/07/25 08:59 40 mg QDAY RED Administration Glucagon 1 mg 09/21/25 20:20 Glucagon Inj 1 Mg Vial IM Q15MIN PRN BG <70, and no IV access Piperacillin/Tazobactam/Dextrose 3.375 gm in 50 mls @ 12.5 mls/hr 09/22/25 06:00 09/23/25 05:29 Zosyn IV 09/29/25 05:59 12.5 mls/hr Q8HR RED Administration Protocol Dextrose/Sodium Chloride 1,000 mls @ 125 mls/hr 09/23/25 08:45 09/23/25 08:37 D5-Ns IV 10/23/25 07:59 125 mls/hr .Q8H RED Administration Insulin Degludec 10 unit 09/22/25 21:00 09/22/25 20:09 Insulin Degludec 5 Unit/0.05 Ml (Per 5 Units) SC 10/22/25 20:59 Not Given QDAY@2100 RED Insulin Human Lispro 0 unit 09/22/25 07:45 09/23/25 05:28 Insulin Lispro (Admelog) 1 Unit/0.01 Ml Unit SC 10/22/25 07:44 2 unit Q6HR RED Administration Protocol Morphine Sulfate 2 mg 09/21/25 20:10 09/22/25 12:10 Morphine Sulf Inj 4 Mg/Ml Vial IVP 09/26/25 20:09 2 mg On Hold: 09/22/25 17:54 Q2H PRN Administration Comment: CHANGED TO 4MG Q4H PAIN SCALE 4-10(Mod-Sev PRN Morphine Sulfate 4 mg 09/22/25 17:49 09/23/25 08:50 Morphine Sulf Inj 4 Mg/Ml Vial IVP 09/27/25 17:48 4 mg Q4HR PRN Administration PAIN Ondansetron HCl 4 mg 09/22/25 17:49 Ondansetron Inj 2 Mg/Ml Inj 2 Ml IVP 10/22/25 17:48 Q4HR PRN NAUSEA OR VOMITING Pantoprazole Sodium 40 mg 09/21/25 20:15 09/23/25 08:30 Pantoprazole Inj 40 Mg Vial IVP 10/21/25 20:14 40 mg QDAY RED Administration Plan 80-year-old male with past medical history of DM2, hypertension, hyperlipidemia, and previous abdominal surgery due to an ulcer was admitted to the hospital due to SBO, high grade. #High grade SBO, mechanical #S/p ex-lap and resection of the small bowel and biopsy of the mesenteric mass and end-to-end anastomosis (09/22/25) #Leukocytosis - improving #Abdominal distention - resolved Patient came in with complaints of not having bowel movement for around 3 weeks along with abdominal distention and abdominal pain. Patient was sent over to the ER by his primary care physician Abdomen/pelvis CT that showed high-grade mechanical SBO with some mesenteric edema. Leukocytes were in the 40s and downtrended to 36.3 Patient does have a history of abdominal surgery therefore could likely have precipitated the SBO. General surgery saw the patient and recommended NG tube to low intermittent suction and to be followed by bowel series when decompressed. Patient had around 700 cc of output from the NG tube. No acute abdomen findings on physical exam. 09/22/25: ex-lap with small bowel resection. Plan: - N.p.o. for now until return of bowel function. - Continue Zosyn (09/22 ~) - Bcx 2/2 neg (09/21/25) - General surgery consulted, appreciate recommendations --> Ex-lap with GenSurg on 09/22/25. - Patient will need outpatient follow up for possible carcinoid tumor per GenSurg, may benefit from another evaluation at a tertiary medical center to see if they can remove tumor from root of mesentery. 5-hydroxyindoleacetic acid and s chromogranin ordered. #ERNESTO on CKD Patient came in with creatinine of 3.3 from his baseline around 1.4 Patient's bicarb was 32 with an anion gap of 15 initially and downtrended to anion gap of 12 Patient's difficulty with voiding. ERNESTO could be secondary to low p.o. intake versus decreased urination due to obstruction given that patient had some Plan: - IV fluids - Avoid nephrotoxic agents - Renally dose medication - Follow-up on daily CMP's - Monitor patient's urine output - Nephrology consulted, appreciate recs --> recs IV fluid resuscitation. - Continue D5NS @ 125ml/hr - Renal US (09/23/25) --> moderate renal scarring, no hydronephrosis or renal calculi. #Electrolyte imbalance #Hyperkalemia #Hypochloremia #Hyperphosphatemia #Hypocalcemia #Lactic acidosis, resolved Patient is potassium was 5.3, chloride 91, phosphorus was 8, and calcium was 8.4. Plan: - IV fluids - Will replete as necessary - Follow-up on morning CMP #DM2 #Hyperglycemia Chronic medical problems Patient came in with glucose of 419 on CMP Patient takes insulin at home and Jardiance. Last A1c was 8.5 in 12/2023 Plan: - ISS - Hypoglycemic protocol in place. - Insulin degludec 15 units x 1 - Degludec 10 units at bedtime - A1c --> 10.3 #HTN #HLD Chronic medical problems - Resume home BP meds, hold today given soft BP - Resume home atorvastatin after ROBF. Disposition: Patient admitted to telemetry for high grade SBO Diet: NPO, pending ROBF. GI prophylaxis: Protonix 40 QD DVT prophylaxis: Lovenox 40mg QD Code: Full Case discussed with my senior resident Dr. Griffiths Case discussed with my attending Dr. Kemar Schrader, PGY 1
--- NOTE | 2025-09-23 12:03 | PD.SURPROG ---
Documentation for date of: 09/23/25 Subjective Subjective Brief History: History of present illness revealed that the patient has been sick for the past 3 or 4 days and he was not eating well and he has not had a bowel movement for 5 days. He noticed increasing abdominal distention and went to his family physician in [place] who immediately sent him to the emergency room. Patient denies any history of vomiting but has not been passing much flatus and had 1 bowel movement yesterday which is very small. Patient denies any such problems in the past. His past medical history revealed the patient had a history of hypertension diabetes mellitus hyperlipidemia and history of renal failure recently diagnosed. Past surgery consist of laparoscopic cholecystectomy and colonoscopy in 2012 and perforated peptic ulcer closure done in 2012 also in this hospital. Patient has any history of cardiac problems is not any blood thinners. He is a smoker smoking about a pack per day for many years and he was taking in the past but he has stopped now except on occasions and he was mostly drinking beer patient is retired. Narrative: Patient is feeling better after surgery because of improvement in abdominal distention. He has not passed any flatus Exam Vital Signs Temp Pulse Resp BP Pulse Ox O2 Del Method O2 Flow Rate 97.4 F 77 19 107/57 L 94 L Nasal Cannula 2 09/23/25 08:39 09/23/25 08:39 09/23/25 08:39 09/23/25 08:39 09/23/25 08:39 09/23/25 08:39 09/23/25 08:39 Patient's vital signs are normal Routine Abdominal Exam Comments: Abdominal examination shows hypoactive bowel sounds Results Results: Laboratory Laboratory Narrative: Laboratory results show significant improvement in WBC Assessment & Plan Assessment Additional comments: Pression: I spoke with the pathologist and the initial preliminary histopathology shows carcinoid tumor. This is in the root of the mesentery and I could not remove the mall for fear of ischemia of the small bowel. Patient may benefit another evaluation as an outpatient with a tertiary Medical Center to see if this could be removed. Other option would be to treat him with chemotherapy. Plan Plan: Patient will wait for him to recover from the obstruction and then consider further treatment plan. I shall order 5-hydroxyindoleacetic acid and s chromogranin a to look for any metastasis. Patient also might need octreotide scan to find out if any spread. Thank you PROCEDURES: Procedures Exploratory laparotomy and resection of the small bowel and biopsy of the mesenteric mass and end-to-end anastomosis
--- NOTE | 2025-09-23 15:44 | PC.SS ---
Rounding: POD #1 Dr. Costa garrett pending DC plan home
--- NOTE | 2025-09-23 21:07 | PD.NEPHCONS ---
History of Present Illness Data of Consult Consult date: 09/23/25 Requesting Physician: Jack Reinoso MD Primary Care Provider: Physician No Primary/Family Consult Narrative Reason for consult: ERNESTO History of present illness: Mr. Graham is a 81-year-old gentleman with past medical history significant for hypertension, dyslipidemia and previous abdominal surgery due to an ulcer comes into the hospital with chief complaint of abdominal pain, associated with 3 weeks of nausea, abdominal distention and no BM. In the emergency department patient was noted to have a bowel blockage high-grade SBO and mesenteric edema. Patient was taken to the OR yesterday and had an exploratory laparotomy and small bowel resection by Dr. Skelton. Patient noted to have decreased urinary output and elevated BUN and creatinine nephrology consultation was requested. Chart review done as patient seems to be a poor historian. ED course: Initially came in hypertensive and afebrile. Initial labs were evaluate for other significant leukocytosis, mild hypokalemia, anion gap metabolic acidosis, ERNESTO, hyperglycemia, lactic acidosis, hyperphosphatemia, hyperbilirubinemia. Patient's beta-hydroxybutyrate 0.9 and procalcitonin was 5.2. Initial imaging included chest x-ray which showed no active disease, abdomen/pelvis CT which showed mesenteric edema and high-grade mechanical SBO. General surgery was consulted in the ED and recommended NG tube to LIS and bowel series. 09/23/2025 currently seen in medical floor. current medications included Protonix, Zosyn, Lovenox, insulin, normal saline at 100 mL/h. Labs showed WBC 19.5, hemoglobin 12.6, platelets 171. Sodium 147, potassium 4.8, BUN 79, creatinine 3.4, blood sugar 215, A1c 10.3, calcium 8.3, magnesium 4.3, LFTs normal except alk phos 140, albumin 3.0, TSH normal, urinalysis that showed 4+ glucose renal ultrasound stat showed no hydronephrosis. cc:: cc: Jack Reinoso MD Review of Systems Review of Systems Narrative Review of Systems: CONSTITUTIONAL: Patient denies any fever, chills. HEENT: Denies any visual disturbances or hearing problems. CARDIOVASCULAR: Patient denies any chest pain, shortness of breath, swelling in the lower extremities. PULMONARY: Patient denies any shortness of breath, cough. GASTROINTESTINAL: Patient complaining of abdominal pain GENITOURINARY: Patient denies any urinary symptoms of burning or frequency or hematuria, denies any form in the urine. SKIN: Denies any rash. MUSCULOSKELETAL: Denies any muscular skeletal problems of joint pains. NEUROLOGICAL: Denies any neurological problems of strokes, seizures or confusion. Denies any memory problems. PSYCHIATRIC: Denies any depression or anxiety. LYMPHATICS : No lymphadenopathy Past Medical History Past Medical History NEUROLOGIC: Negative Neurological Disorders or Seizures CARDIAC: Positive Cardiac Disorders, Hypercholesterolemia, Hypertension and Hypotension; Negative Congestive Heart Failure RESPIRATORY: Negative Respiratory Disorders or Chronic Obstructive Pulmonary Disease (COPD) GASTROINTESTINAL: Positive Gall Bladder Disease and Ulcer; Negative Gastrointestinal Disorders or Hepatitis GENITOURINARY: Negative Genitourinary Disorders or Renal Disease REPRODUCTIVE: Negative Fibroids MUSCULOSKELETAL: Negative Musculoskeletal Disorders ENT: Negative History of ENT Problems ENDOCRINE: Positive Endocrine Disorders and Diabetes Mellitus Type 2 (U); Negative Diabetes Mellitus Type 1 HEMATOLOGIC: Negative Blood Disorders OTHER HISTORY: Positive Chicken Pox; Negative Autoimmune Disease, Blood Transfusions, Blood Transfusion Reaction, Anesthesia Reactions, Organ Transplant, MRSA, Human Immunodeficiency Virus (HIV), Measles, Mumps, Rubella (Danish Measles), Pertussis, Clostridium Difficile or Cancer Surgical History SURGICAL: Positive Abdominal Surgery; Negative Cardiac Surgery, Endocrine Surgery, Penile Implant, Nephrectomy, Ureteral Stent, Transurethral Resection, Joint Replacement, Neurologic Surgery, Vasectomy, Organ Transplant or ESWL Social History SMOKING STATUS: Never smoker Travel History EBOLA RISK: No Meds Home Medications and Allergies Home Medications ?Medication ?Instructions ?Recorded ?Confirmed ?Type atorvastatin 10 mg tablet 10 mg PO DAILY 09/22/25 09/22/25 History empagliflozin 25 mg tablet 25 mg PO DAILY 09/22/25 09/22/25 History (Jardiance) ergocalciferol (vitamin D2) 1,250 1,250 mcg PO QWEEK 09/22/25 09/22/25 History mcg (50,000 unit) capsule (Vitamin D2) lisinopril 30 mg tablet 30 mg PO DAILY 09/22/25 09/22/25 History magnesium oxide 400 mg PO QDAY 09/22/25 09/22/25 History Allergies Allergy/AdvReac Type Severity Reaction Status Date / Time No Known Allergies Allergy Verified 09/22/25 17:20 Exam Vital Signs Temp Pulse Resp BP Pulse Ox O2 Del Method O2 Flow Rate 36.6 C 68 18 135/61 H 95 Nasal Cannula 3 09/23/25 20:00 09/23/25 20:00 09/23/25 20:00 09/23/25 20:00 09/23/25 20:00 09/23/25 20:00 09/23/25 20:00 Narrative Exam GENERAL APPEARANCE: Patient seems to be comfortable, adequately hydrated and nourished. HEENT: EOMI, PERRLA NECK: Neck supple, no JVD or bruit CARDIOVASCULAR: Heart regular, no murmurs LUNGS/CHEST: Chest clear to auscultation. No rales, rhonchi, wheezing ABDOMEN: Status post bowel surgery EXTREMITIES: No edema, clubbing or cyanosis. SKIN: Skin exam normal without any rashes MUSCULOSKELETAL: Musculoskeletal exam normal PSYCHIATRIC: Normal mood, affect LYMPHATICS: No lymphadenopathy noted NEUROLOGICAL : No neurological deficits Results Labs 09/24/25 04:43 09/24/25 04:43 Labs: Short CBC 09/23/25 Range/Units 04:50 WBC 19.5 H D (3.8-10.6) Thou/mm3 Hgb 12.6 L D (13.5-16.0) g/dL Hct 38.9 L (41.0-53.0) % Plt Count 171 D (140-440) Thou/mm3 BMP 09/23/25 04:50 Sodium 147 H Potassium 4.8 Chloride 108 H Carbon Dioxide 24.2 BUN 79 H Creatinine 3.4 H Glucose 215 H Calcium 7.5 L Liver Function 09/23/25 Range/Units 04:50 Total Bilirubin 0.9 (0.3-1.2) mg/dL AST 14 (0-34) U/L ALT 19 (10-49) U/L Alkaline Phosphatase 140 H D (46-116) U/L Albumin 3.0 L D (3.4-4.8) gm/dL ABG Interpretation ABG results: 09/21/25 17:09 ABG pH 7.51 H ABG pCO2 44 ABG pO2 69 L ABG HCO3 35 H ABG O2 Saturation 94 ABG Base Excess 11 H Assessment & Plan Assessment and plan (1) ERNESTO (acute kidney injury): Status: Acute Assessment and plan: ERNESTO secondary to prerenal azotemia. Patient has decreased p.o. intake and fluctuations in blood pressure. Agree with continuing on IV fluids. Renal ultrasound showed no hydronephrosis. (2) SBO (small bowel obstruction): Status: Acute Assessment and plan: Status post exploratory laparotomy small bowel resection. (3) Diabetes: Status: Acute Assessment and plan: Low carb diet patient needs aggressive blood sugar control. His last A1c was 10.3 (4) Hypertension: Status: Acute Assessment and plan: Blood pressure seems to be better (5) Hyperlipidemia: Status: Acute Assessment and plan: Check lipids (6) Leukocytosis: Status: Acute Assessment and plan: White count markedly improved after surgery and antibiotics. Additional Assessment & Plan Additional Plan: Thank you Jack for allowing me to participate in the care of Mr. Branch
[2025-09-23] MEDS: INSULIN DEGLUDEC 5 UNIT/0.05 ML (PER 5 UNITS) 10 UNIT SC (21:08)
[2025-09-24] VITALS (10 sets, daily range): BP systolic 123–145; BP diastolic 54–70; PULSE 54–104; RESP 15–20; TEMP 36.1–37.1; O2SAT 90–98; BMI 11.0
[2025-09-24] MEDS: MORPHINE SULF INJ 4 MG/ML VIAL IVP ×4 (02:09→16:39)
[2025-09-24] MEDS: DEXTROSE 5%-NS 1,000 ML 125 ML IV (03:15)
[2025-09-24 05:08] LABS: Basophils # (Auto) 0.0 Thou/mm3 (0.0-0.2); Basophils % (Auto) 0 % (0-2.5); Eosinophils # (Auto) 0.0 Thou/mm3 (0.0-0.5); Eosinophils % (Auto) 0 % (0-10); Hematocrit 35.2 % (41.0-53.0); Hemoglobin 11.2 g/dL (13.5-16.0); Immature Granulocytes Auto 0.08 Thou/mm3 (0.00-0.00); Lymphocytes # (Auto) 0.5 Thou/mm3 (1.0-4.8); Lymphocytes % (Auto) 3 % (10-50); Mean Corpuscular HGB Conc 31.8 g/dl (31.0-37.0); Mean Corpuscular Hemoglobin 30.2 pg (25.0-35.0); Mean Corpuscular Volume 95 fL (80-100); Monocytes # (Auto) 0.8 Thou/mm3 (0.0-0.8); Monocytes % (Auto) 5 % (0-12); Neutrophils # (Auto) 14.5 Thou/mm3 (1.8-7.7); Neutrophils % (Auto) 92 % (37-80); Nucleated Red Blood Cell # 0.00 Thou/mm3 (0.00-0.00); Nucleated Red Blood Cell % 0 /100 WBC (0); Platelet Count 184 Thou/mm3 (140-440); RDW Standard Deviation 44.9 fL (35.1-43.9); Red Blood Count 3.71 Miln/mm3 (4.50-5.90); White Blood Count 15.8 Thou/mm3 (3.8-10.6)
[2025-09-24 05:34] LABS: Alanine Aminotransferase 16 U/L (10-49); Albumin, Serum 3.0 gm/dL (3.4-4.8); Albumin/Globulin Ratio 1.4 (1.2-2.2); Alkaline Phosphatase 154 U/L (46-116); Anion Gap 13 (7-16); Aspartate Amino Transferase 13 U/L (0-34); BUN/Creatinine Ratio 25 Ratio (12-20); Bilirubin,Total 0.5 mg/dL (0.3-1.2); Blood Urea Nitrogen 75 mg/dL (9-23); Calcium 7.8 mg/dL (8.3-10.6); Calcium (Corrected) 8.6 mg/dL (8.5-10.1); Carbon Dioxide 25.7 mMol/L (20.0-31.0); Chloride 109 mMol/L (98-107); Creatinine (Component) 3.0 mg/dL (0.6-1.3); Estimated Creatinine Clearance 20.5 mL/min (>60); Globulin 2.2 gm/dL (2.3-3.5); Glucose 293 mg/dL (74-106); Magnesium 4.0 mg/dL (1.6-2.6); Osmolality,Calculated 327 (275-295); Phosphorous 6.7 mg/dL (2.4-5.1); Potassium 4.7 mMol/L (3.4-5.1); Sodium 148 mMol/L (136-145); Total Protein 5.2 gm/dL (5.7-8.2); eGFR 20 See Note
[2025-09-24] MEDS: PIPER/TAZO 3.375 GM PREMIX 3.375 GM/50 ML BAG IV ×3 (06:03→21:01)
[2025-09-24] MEDS: INSULIN LISPRO (AdmeLOG) 1 UNIT/0.01 ML UNIT SC ×3 (06:05→20:55)
[2025-09-24] MEDS: ENOXAPARIN SOD INJ 40 MG/0.4 ML SYRINGE SC (08:48)
[2025-09-24] MEDS: SODIUM CHLORIDE 0.9% 1000 ML 1,000 ML 125 ML IV ×2 (08:49→16:34)
--- NOTE | 2025-09-24 08:59 | ESPR_ITS ---
<Statement entered by Jack Reinoso MD - 09/28/25 07:59> I reviewed above note and agree with findings and plans. I have also personally examined the patient with medicine team and went over assessment and plan with medical team including chemist intern and resident physician. <Statement entered by Daryl Griffiths MD - 09/24/25 16:35> In summary: An 80-year-old male with a history of Type 2 Diabetes, hypertension, hyperlipidemia, and previous abdominal surgery for an ulcer was admitted with high-grade mechanical small bowel obstruction (SBO). He reported not having a bowel movement for three weeks, along with abdominal pain and distention. A CT scan confirmed SBO with mesenteric edema, and his white blood cell count was elevated but decreased over time. 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 General surgery was also secondary to diffuse carcinoid nodule throughout the colon and had recommended outpatient referral for tertiary center for management. For now we have ordered carcinoid markers which are currently pending. Currently awaiting return of bowel function. ERNESTO as being managed with IV fluids and overall improving. I?ve reviewed the note and agree with this assessment and plan, with the exceptions outlined above. I personally went over the labs, imaging, home medications, and prior records, and examined the patient. The case was also reviewed with the attending physician. Please note: this document was transcribed using voice recognition technology; minor inaccuracies may be present. Daryl Griffiths DO PGY II Documentation for date of: 09/24/25 Subjective Subjective Interval history: 80-year-old male with past medical history of DM2, hypertension, hyperlipidemia, and previous abdominal surgery due to an ulcer comes into the hospital with chief complaint of abdominal pain. Patient was told by his primary care physician to come into the ER as he had been having around 3 weeks of low oral intake along with some nausea, abdominal distention, and not having a bowel movement throughout this time either. Patient is a poor historian, but patient's daughter was at bedside even though she does not live with the patient she was able to tell me that he has been feeling unwell recently. Patient stated that he had not come to the hospital, but that today his primary care physician told him to come to the hospital and that his words had worsened today than days prior. He denies any vomiting or issues urinating. Otherwise has no other complaints at this time. 09/22/25: NAOE, VSS, AF. Spoke with Dr. Sheppard, advised to proceed with surgery this afternoon given impressive CT scan for acute small bowel obstruction. It is likely that patient may have an appendicitis given his complaint of RLQ pain with leukocytosis, however, no peritoneal signs on exam or free air under diaphragm. WBC decreased from 40.1 to 37.5 this morning, will continue empiric antibiotics. 09/23/25: S/p ex-lap with small bowel resection and end-to-end anastomosis. Patient tolerated the procedure well, reports moderate amount of pain. PRN pain reg in place. Pending return of bowel function prior to resume diet. Nephrology was consulted for ERNESTO, recs IV fluid resuscitation. D5NS started with rate of 125ml/hr. 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 choromogranin a sent. 09/24/25: NAOE. VSS, AF. No reported bowel movement yet. CLD started. Pain well controlled. Cr improved from 3.4 to 3.0. 1L NaCl @ rate of 125mL/hr started. Increased Insulin Degludec from 10 to 15U today (patient takes 20U at home). WBC continue to downtrend with Zosyn. Will continue to monitor for ROBF. Exam Vital Signs Temp Pulse Resp BP Pulse Ox O2 Del Method O2 Flow Rate 97.1 F 104 H 19 145/70 H 98 Nasal Cannula 3.5 09/24/25 08:00 09/24/25 08:00 09/24/25 08:00 09/24/25 08:00 09/24/25 08:00 09/24/25 08:00 09/24/25 08:00 Narrative Exam General: Alert, oriented, in no acute distress. Pain controlled. HEENT: Normocephalic, atraumatic. Neck: Supple, no JVD, no lymphadenopathy or thyroid enlargement. Cardiovascular: Regular rate and rhythm. No murmurs, rubs, or gallops. Respiratory: Clear to auscultation bilaterally. No wheezes, rales, or rhonchi. Normal respiratory effort. Abdomen: Soft, nontender, but distended. No peritoneal signs. Midline incision dressed, dry and intact. Musculoskeletal: Full range of motion in all extremities. No joint swelling, tenderness, or deformities. Skin: Warm, dry, intact. No rashes or lesions. Objective Labs 09/24/25 04:43 09/24/25 04:43 Labs: Laboratory Results - last 24 hr 09/24/25 04:43 WBC 15.8 H RBC 3.71 L Hgb 11.2 L Hct 35.2 L MCV 95 MCH 30.2 MCHC 31.8 RDW Std Deviation 44.9 H Plt Count 184 Neut % (Auto) 92 H Lymph % (Auto) 3 L Woodruff % (Auto) 5 Eos % (Auto) 0 Baso % (Auto) 0 Neut # (Auto) 14.5 H Lymph # (Auto) 0.5 L Woodruff # (Auto) 0.8 Eos # (Auto) 0.0 Baso # (Auto) 0.0 Immature Gran # (Auto) 0.08 H Absolute Nucleated RBC 0.00 Immature Gran % 1 H Nucleated RBC % 0 Sodium 148 H Potassium 4.7 Chloride 109 H Carbon Dioxide 25.7 Anion Gap 13 BUN 75 H Creatinine 3.0 H Estim Creat Clear Calc 20.5 L eGFR 20 L BUN/Creatinine Ratio 25 H Glucose 293 H D Calculated Osmolality 327 H Calcium 7.8 L Corrected Calcium 8.6 Phosphorus 6.7 H Magnesium 4.0 H Total Bilirubin 0.5 AST 13 ALT 16 Alkaline Phosphatase 154 H Total Protein 5.2 L Albumin 3.0 L Globulin 2.2 L Albumin/Globulin Ratio 1.4 ABG Interpretation ABG results: 09/21/25 17:09 ABG pH 7.51 H ABG pCO2 44 ABG pO2 69 L ABG HCO3 35 H ABG O2 Saturation 94 ABG Base Excess 11 H Quality Measures Quality Measures VTE prophylaxis Advance care planning discussed with:: patient Assessment & Plan Assessment Current Active Medications: Generic Name Dose Route Start Last Admin Trade Name Freq PRN Reason Stop Dose Admin Acetaminophen 650 mg 09/22/25 17:49 Acetaminophen 325 Mg Tablet PO 10/22/25 17:48 Q6HR PRN [id number] Dextrose 25 ml 09/21/25 20:20 Dextrose 50%-Water Inj 50 Ml Syringe IV 10/21/25 20:19 Q15MIN PRN BG 50-70 responsive npo pt Dextrose 50 ml 09/21/25 20:20 Dextrose 50%-Water Inj 50 Ml Syringe IV 10/21/25 20:19 Q15MIN PRN BG <50 OR BG <70 & pt unresponsive Enoxaparin Sodium 40 mg 09/23/25 09:00 09/24/25 08:48 Enoxaparin Sod Inj 40 Mg/0.4 Ml Syringe SC 10/07/25 08:59 40 mg QDAY RED Administration Glucagon 1 mg 09/21/25 20:20 Glucagon Inj 1 Mg Vial IM Q15MIN PRN BG <70, and no IV access Piperacillin/Tazobactam/Dextrose 3.375 gm in 50 mls @ 12.5 mls/hr 09/22/25 06:00 09/24/25 06:03 Zosyn IV 09/29/25 05:59 12.5 mls/hr Q8HR RED Administration Protocol Sodium Chloride 1,000 mls @ 125 mls/hr 09/24/25 07:36 09/24/25 08:49 Ns IV 10/24/25 07:35 125 mls/hr .Q8H RED Administration Insulin Degludec 15 unit 09/24/25 21:00 Insulin Degludec 5 Unit/0.05 Ml (Per 5 Units) SC 10/24/25 20:59 QDAY@2100 RED Insulin Human Lispro 0 unit 09/24/25 11:30 Insulin Lispro (Admelog) 1 Unit/0.01 Ml Unit SC 10/24/25 11:29 ACHS [facility] Protocol Morphine Sulfate 2 mg 09/21/25 20:10 09/22/25 12:10 Morphine Sulf Inj 4 Mg/Ml Vial IVP 09/26/25 20:09 2 mg On Hold: 09/22/25 17:54 Q2H PRN Administration Comment: CHANGED TO 4MG Q4H PAIN SCALE 4-10(Mod-Sev PRN Morphine Sulfate 4 mg 09/22/25 17:49 09/24/25 07:11 Morphine Sulf Inj 4 Mg/Ml Vial IVP 09/27/25 17:48 4 mg Q4HR PRN Administration PAIN Ondansetron HCl 4 mg 09/22/25 17:49 Ondansetron Inj 2 Mg/Ml Inj 2 Ml IVP 10/22/25 17:48 Q4HR PRN NAUSEA OR VOMITING Pantoprazole Sodium 40 mg 09/21/25 20:15 09/24/25 08:48 Pantoprazole Inj 40 Mg Vial IVP 10/21/25 20:14 40 mg QDAY RED Administration Plan 80-year-old male with past medical history of DM2, hypertension, hyperlipidemia, and previous abdominal surgery due to an ulcer was admitted to the hospital due to SBO, high grade. #High grade SBO, mechanical #S/p ex-lap and resection of the small bowel and biopsy of the mesenteric mass and end-to-end anastomosis (09/22/25) #Leukocytosis - improving #Abdominal distention - resolved Patient came in with complaints of not having bowel movement for around 3 weeks along with abdominal distention and abdominal pain. Patient was sent over to the ER by his primary care physician Abdomen/pelvis CT that showed high-grade mechanical SBO with some mesenteric edema. Leukocytes were in the 40s and downtrended to 36.3 Patient does have a history of abdominal surgery therefore could likely have precipitated the SBO. General surgery saw the patient and recommended NG tube to low intermittent suction and to be followed by bowel series when decompressed. Patient had around 700 cc of output from the NG tube. No acute abdomen findings on physical exam. 09/22/25: ex-lap with small bowel resection. Plan: - Advanced to CLD. - Continue Zosyn (09/22 ~) - Bcx 2/2 neg (09/21/25) - General surgery consulted, appreciate recommendations --> Ex-lap with GenSurg on 09/22/25. - Patient will need outpatient follow up for possible carcinoid tumor per GenSurg, may benefit from another evaluation at a tertiary medical center to see if they can remove tumor from root of mesentery. 5-hydroxyindoleacetic acid and s chromogranin ordered. - MMPR - PT eval. #ERNESTO on CKD Patient came in with creatinine of 3.3 from his baseline around 1.4 Patient's bicarb was 32 with an anion gap of 15 initially and downtrended to anion gap of 12 Patient's difficulty with voiding. ERNESTO could be secondary to low p.o. intake versus decreased urination due to obstruction given that patient had some Plan: - IV fluids - Avoid nephrotoxic agents - Renally dose medication - Follow-up on daily CMP's - Monitor patient's urine output - Nephrology consulted, appreciate recs --> recs IV fluid resuscitation. - Continue NaCl 0.9% @ 125ml/hr - Renal US (09/23/25) --> moderate renal scarring, no hydronephrosis or renal calculi. #Electrolyte imbalance #Hyperkalemia #Hypochloremia #Hyperphosphatemia #Hypocalcemia #Lactic acidosis, resolved Patient is potassium was 5.3, chloride 91, phosphorus was 8, and calcium was 8.4. Plan: - IV fluids - Will replete as necessary - Follow-up on morning CMP #DM2 #Hyperglycemia Chronic medical problems Patient came in with glucose of 419 on CMP Patient takes insulin at home and Jardiance. Last A1c was 8.5 in 12/2023 Plan: - ISS - Hypoglycemic protocol in place. - Insulin degludec 15 units x 1 - Degludec increased from 10 units to 15U at bedtime (Patient takes 20U at home.) - A1c --> 10.3 #HTN #HLD Chronic medical problems - Resume home BP meds, hold today given soft BP - Resume home atorvastatin after ROBF. Disposition: Pending ROBF, pain control, PT eval. Diet: CLD, advance as tolerated GI prophylaxis: Protonix 40 QD DVT prophylaxis: Lovenox 40mg QD Code: Full Case discussed with my senior resident Dr. Griffiths Case discussed with my attending Dr. Kemar Schrader, DO PGY 1
--- NOTE | 2025-09-24 09:02 | ESPR_ITS ---
Documentation for date of: 09/24/25 Subjective Subjective Interval history: Mr. Graham is a 81-year-old gentleman with past medical history significant for hypertension, dyslipidemia and previous abdominal surgery due to an ulcer comes into the hospital with chief complaint of abdominal pain, associated with 3 weeks of nausea, abdominal distention and no BM. In the emergency department patient was noted to have a bowel blockage high-grade SBO and mesenteric edema. Patient was taken to the OR yesterday and had an exploratory laparotomy and small bowel resection by Dr. Skelton. Patient noted to have decreased urinary output and elevated BUN and creatinine nephrology consultation was requested. Chart review done as patient seems to be a poor historian. ED course: Initially came in hypertensive and afebrile. Initial labs were evaluate for other significant leukocytosis, mild hypokalemia, anion gap metabolic acidosis, ERNESTO, hyperglycemia, lactic acidosis, hyperphosphatemia, hyperbilirubinemia. Patient's beta-hydroxybutyrate 0.9 and procalcitonin was 5.2. Initial imaging included chest x-ray which showed no active disease, abdomen/pelvis CT which showed mesenteric edema and high-grade mechanical SBO. General surgery was consulted in the ED and recommended NG tube to LIS and bowel series. 09/23/2025 currently seen in medical floor. current medications included Protonix, Zosyn, Lovenox, insulin, normal saline at 100 mL/h. Labs showed WBC 19.5, hemoglobin 12.6, platelets 171. Sodium 147, potassium 4.8, BUN 79, creatinine 3.4, blood sugar 215, A1c 10.3, calcium 8.3, magnesium 4.3, LFTs normal except alk phos 140, albumin 3.0, TSH normal, urinalysis that showed 4+ glucose renal ultrasound stat showed no hydronephrosis. 09/24/2025 patient currently seen in medical floor. Resting comfortably. Status post surgery. BUN and creatinine tad better. Sodium seems to be elevated. Will switch IV fluids to half-normal saline. Will add BP medication Review of Systems Review of Systems Narrative Review of Systems: CONSTITUTIONAL: Patient denies any fever, chills. HEENT: Denies any visual disturbances or hearing problems. CARDIOVASCULAR: Patient denies any chest pain, shortness of breath, swelling in the lower extremities. PULMONARY: Patient denies any shortness of breath, cough. GASTROINTESTINAL: Patient complaining of abdominal pain GENITOURINARY: Patient denies any urinary symptoms of burning or frequency or hematuria, denies any form in the urine. SKIN: Denies any rash. MUSCULOSKELETAL: Denies any muscular skeletal problems of joint pains. NEUROLOGICAL: Denies any neurological problems of strokes, seizures or confusion. Denies any memory problems. PSYCHIATRIC: Denies any depression or anxiety. LYMPHATICS : No lymphadenopathy Exam Vital Signs Temp Pulse Resp BP Pulse Ox O2 Del Method O2 Flow Rate 36.3 C 77 19 144/68 H 93 L Room Air 3 09/24/25 20:53 09/24/25 20:53 09/24/25 20:53 09/24/25 20:53 09/24/25 20:53 09/24/25 20:53 09/24/25 20:25 Narrative Exam GENERAL APPEARANCE: Patient seems to be comfortable, adequately hydrated and nourished. HEENT: EOMI, PERRLA NECK: Neck supple, no JVD or bruit CARDIOVASCULAR: Heart regular, no murmurs LUNGS/CHEST: Chest clear to auscultation. No rales, rhonchi, wheezing ABDOMEN: Status post bowel surgery EXTREMITIES: No edema, clubbing or cyanosis. SKIN: Skin exam normal without any rashes MUSCULOSKELETAL: Musculoskeletal exam normal PSYCHIATRIC: Normal mood, affect LYMPHATICS: No lymphadenopathy noted NEUROLOGICAL : No neurological deficits Objective Labs 09/24/25 04:43 09/24/25 04:43 Labs: Laboratory Results - last 24 hr 09/24/25 04:43 WBC 15.8 H RBC 3.71 L Hgb 11.2 L Hct 35.2 L MCV 95 MCH 30.2 MCHC 31.8 RDW Std Deviation 44.9 H Plt Count 184 Neut % (Auto) 92 H Lymph % (Auto) 3 L Dougherty % (Auto) 5 Eos % (Auto) 0 Baso % (Auto) 0 Neut # (Auto) 14.5 H Lymph # (Auto) 0.5 L Dougherty # (Auto) 0.8 Eos # (Auto) 0.0 Baso # (Auto) 0.0 Immature Gran # (Auto) 0.08 H Absolute Nucleated RBC 0.00 Immature Gran % 1 H Nucleated RBC % 0 Sodium 148 H Potassium 4.7 Chloride 109 H Carbon Dioxide 25.7 Anion Gap 13 BUN 75 H Creatinine 3.0 H Estim Creat Clear Calc 20.5 L eGFR 20 L BUN/Creatinine Ratio 25 H Glucose 293 H D Calculated Osmolality 327 H Calcium 7.8 L Corrected Calcium 8.6 Phosphorus 6.7 H Magnesium 4.0 H Total Bilirubin 0.5 AST 13 ALT 16 Alkaline Phosphatase 154 H Total Protein 5.2 L Albumin 3.0 L Globulin 2.2 L Albumin/Globulin Ratio 1.4 ABG Interpretation ABG results: 09/21/25 17:09 ABG pH 7.51 H ABG pCO2 44 ABG pO2 69 L ABG HCO3 35 H ABG O2 Saturation 94 ABG Base Excess 11 H Assessment & Plan Assessment and plan (1) ERNESTO (acute kidney injury): Status: Acute Assessment and plan: ERNESTO secondary to prerenal azotemia. Patient has decreased p.o. intake and fluctuations in blood pressure. Agree with continuing on IV fluids. Renal ultrasound showed no hydronephrosis. (2) SBO (small bowel obstruction): Status: Acute Assessment and plan: Status post exploratory laparotomy small bowel resection. (3) Diabetes: Status: Acute Assessment and plan: Low carb diet patient needs aggressive blood sugar control. His last A1c was 10.3 (4) Hypertension: Status: Acute Assessment and plan: Blood pressure seems to be better (5) Hyperlipidemia: Status: Acute Assessment and plan: Check lipids (6) Leukocytosis: Status: Acute Assessment and plan: White count markedly improved after surgery and antibiotics. Additional Assessment & Plan Additional Plan: Thank you Jack for allowing me to participate in the care of Mr. Branch
--- NOTE | 2025-09-24 12:54 | PC.SS ---
[employer] met with patient and family confirmed D/C plan is SNF. Preferred SNF is [facility]. Family informed that authorization will be required for transition to SNF.
--- NOTE | 2025-09-24 12:55 | PC.SS ---
SNF referral submitted on [facility]. Awaiting responses. Autumn Sandro preferred SNF.
--- NOTE | 2025-09-24 12:59 | PC.SS ---
PASSR completed. Meets Level I criteria.
--- NOTE | 2025-09-24 16:28 | PC.PT ---
Patient is safe to ambulate to the bathroom with a FWW and 1 staff assist. RN made aware.
[2025-09-24] MEDS: INSULIN DEGLUDEC 5 UNIT/0.05 ML (PER 5 UNITS) 15 UNIT SC (20:55)
[2025-09-24] MEDS: SODIUM CHLORIDE 0.45 % 1,000 ML 120 ML IV (22:17)
[2025-09-25] VITALS (8 sets, daily range): BP systolic 146–163; BP diastolic 70–85; PULSE 61–90; RESP 16–18; TEMP 36.2–36.6; O2SAT 94–98; BMI 30.6; BMI 11.0
[2025-09-25] MEDS: MORPHINE SULF INJ 4 MG/ML VIAL IVP ×2 (03:30→22:13)
[2025-09-25] MEDS: PIPER/TAZO 3.375 GM PREMIX 3.375 GM/50 ML BAG IV ×3 (05:05→21:28)
[2025-09-25 05:40] LABS: Basophils # (Auto) 0.0 Thou/mm3 (0.0-0.2); Basophils % (Auto) 0 % (0-2.5); Eosinophils # (Auto) 0.0 Thou/mm3 (0.0-0.5); Eosinophils % (Auto) 0 % (0-10); Hematocrit 40.4 % (41.0-53.0); Hemoglobin 12.8 g/dL (13.5-16.0); Immature Granulocytes Auto 0.06 Thou/mm3 (0.00-0.00); Lymphocytes # (Auto) 0.5 Thou/mm3 (1.0-4.8); Lymphocytes % (Auto) 5 % (10-50); Mean Corpuscular HGB Conc 31.7 g/dl (31.0-37.0); Mean Corpuscular Hemoglobin 30.5 pg (25.0-35.0); Mean Corpuscular Volume 96 fL (80-100); Monocytes # (Auto) 0.6 Thou/mm3 (0.0-0.8); Monocytes % (Auto) 6 % (0-12); Neutrophils # (Auto) 9.3 Thou/mm3 (1.8-7.7); Neutrophils % (Auto) 89 % (37-80); Nucleated Red Blood Cell # 0.00 Thou/mm3 (0.00-0.00); Nucleated Red Blood Cell % 0 /100 WBC (0); Platelet Count 189 Thou/mm3 (140-440); RDW Standard Deviation 46.4 fL (35.1-43.9); Red Blood Count 4.19 Miln/mm3 (4.50-5.90); White Blood Count 10.5 Thou/mm3 (3.8-10.6)
[2025-09-25 06:05] LABS: Alanine Aminotransferase 16 U/L (10-49); Albumin, Serum 3.3 gm/dL (3.4-4.8); Albumin/Globulin Ratio 1.5 (1.2-2.2); Alkaline Phosphatase 297 U/L (46-116); Anion Gap 12 (7-16); Aspartate Amino Transferase 16 U/L (0-34); BUN/Creatinine Ratio 24 Ratio (12-20); Bilirubin,Total 0.7 mg/dL (0.3-1.2); Blood Urea Nitrogen 57 mg/dL (9-23); Calcium 7.9 mg/dL (8.3-10.6); Calcium (Corrected) 8.5 mg/dL (8.5-10.1); Carbon Dioxide 26.2 mMol/L (20.0-31.0); Chloride 109 mMol/L (98-107); Creatinine (Component) 2.4 mg/dL (0.6-1.3); Globulin 2.2 gm/dL (2.3-3.5); Glucose 145 mg/dL (74-106); Magnesium 3.1 mg/dL (1.6-2.6); Osmolality,Calculated 311 (275-295); Phosphorous 4.1 mg/dL (2.4-5.1); Potassium 4.2 mMol/L (3.4-5.1); Sodium 147 mMol/L (136-145); Total Protein 5.5 gm/dL (5.7-8.2); eGFR 26 See Note
[2025-09-25 06:35] LABS: Estimated Creatinine Clearance 26.9 mL/min (>60)
[2025-09-25] MEDS: ENOXAPARIN SOD INJ 40 MG/0.4 ML SYRINGE SC (08:25)
--- NOTE | 2025-09-25 08:54 | PC.SS ---
[facility] accepted via [facility], SS reached out to let them know they are pt and families #1 choice
--- NOTE | 2025-09-25 10:10 | XR_ITS ---
Examination: Abdomen AP single view Technique: AP portable supine abdomen, single view Exam date and time: September 25, 2025, 1020 hours INDICATIONS: Abdominal pain post surgery FINDINGS: Prominently air distended small bowel loops Air is present in the colon No free air Surgical clips upper right abdomen IMPRESSION: Small bowel obstruction pattern, consider Gastrografin small bowel series follow-up
--- NOTE | 2025-09-25 11:32 | ESPR_ITS ---
<Statement entered by Jack Reinoso MD - 09/28/25 08:02> I reviewed above note and agree with findings and plans. I have also personally examined the patient with medicine team and went over assessment and plan with medical team including wildlife biology internship and resident physician. <Statement entered by Jonathan Calderon MD - 09/25/25 14:09> Patient is complaining of mild distention of abdomen, is passing gas but has not had any bowel movements. KUB was ordered which indicated stool throughout the colon, per surgery no bowel regimen at this time. Will advance diet as tolerated. I discussed with and supervised the wildlife biology internship physician involved in the care of this patient. Patient assessment and plan was discussed with entire medicine team, including my attending. I agree with the assessment and plan as documented by wildlife biology internship doctor. Patient care was discussed with my attending physician Dr. Kemar Calderon, PGY-3 Documentation for date of: 09/25/25 Subjective Subjective Interval history: 80-year-old male with past medical history of DM2, hypertension, hyperlipidemia, and previous abdominal surgery due to an ulcer comes into the hospital with chief complaint of abdominal pain. Patient was told by his primary care physician to come into the ER as he had been having around 3 weeks of low oral intake along with some nausea, abdominal distention, and not having a bowel movement throughout this time either. Patient is a poor historian, but patient's daughter was at bedside even though she does not live with the patient she was able to tell me that he has been feeling unwell recently. Patient stated that he had not come to the hospital, but that today his primary care physician told him to come to the hospital and that his words had worsened today than days prior. He denies any vomiting or issues urinating. Otherwise has no other complaints at this time. 09/22/25: MESERET, NANCY, AF. Spoke with Dr. Sheppard, advised to proceed with surgery this afternoon given impressive CT scan for acute small bowel obstruction. It is likely that patient may have an appendicitis given his complaint of RLQ pain with leukocytosis, however, no peritoneal signs on exam or free air under diaphragm. WBC decreased from 40.1 to 37.5 this morning, will continue empiric antibiotics. 09/23/25: S/p ex-lap with small bowel resection and end-to-end anastomosis. Patient tolerated the procedure well, reports moderate amount of pain. PRN pain reg in place. Pending return of bowel function prior to resume diet. Nephrology was consulted for ERNESTO, recs IV fluid resuscitation. D5NS started with rate of 125ml/hr. 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 choromogranin a sent. 09/24/25: NAOE. VSS, AF. No reported bowel movement yet. CLD started. Pain well controlled. Cr improved from 3.4 to 3.0. 1L NaCl @ rate of 125mL/hr started. Increased Insulin Degludec from 10 to 15U today (patient takes 20U at home). WBC continue to downtrend with Zosyn. Will continue to monitor for ROBF. 09/25/25: NAOE. Patient's abdomen appeared to be distended today. KUB revealed large stool burden in colon on wet read. Patient reported he had passed gas, but no bowel movement yet. Awaiting ROBF. ERNESTO improving with IV hydration. Exam Vital Signs Temp Pulse Resp BP Pulse Ox O2 Del Method O2 Flow Rate 97.2 F 81 18 151/76 H 98 Nasal Cannula 3 09/25/25 08:00 09/25/25 08:26 09/25/25 08:00 09/25/25 08:26 09/25/25 08:00 09/25/25 08:00 09/25/25 08:00 Narrative Exam General: Alert, oriented, in no acute distress. Pain controlled. No BM yet. HEENT: Normocephalic, atraumatic. Neck: Supple, no JVD, no lymphadenopathy or thyroid enlargement. Cardiovascular: Regular rate and rhythm. No murmurs, rubs, or gallops. Respiratory: Clear to auscultation bilaterally. No wheezes, rales, or rhonchi. Normal respiratory effort. Abdomen: Soft, nontender, but distended. No peritoneal signs. Midline incision dressed, dry and intact. Musculoskeletal: Full range of motion in all extremities. No joint swelling, tenderness, or deformities. Skin: Warm, dry, intact. No rashes or lesions. Objective Labs 09/25/25 05:05 09/25/25 05:05 Labs: Laboratory Results - last 24 hr 09/25/25 05:05 WBC 10.5 D RBC 4.19 L Hgb 12.8 L Hct 40.4 L MCV 96 MCH 30.5 MCHC 31.7 RDW Std Deviation 46.4 H Plt Count 189 Neut % (Auto) 89 H Lymph % (Auto) 5 L [place] % (Auto) 6 Eos % (Auto) 0 Baso % (Auto) 0 Neut # (Auto) 9.3 H Lymph # (Auto) 0.5 L [place] # (Auto) 0.6 Eos # (Auto) 0.0 Baso # (Auto) 0.0 Immature Gran # (Auto) 0.06 H Absolute Nucleated RBC 0.00 Immature Gran % 1 H Nucleated RBC % 0 Sodium 147 H Potassium 4.2 D Chloride 109 H Carbon Dioxide 26.2 Anion Gap 12 BUN 57 H Creatinine 2.4 H D Estim Creat Clear Calc 26.9 L eGFR 26 L BUN/Creatinine Ratio 24 H Glucose 145 H D Calculated Osmolality 311 H Calcium 7.9 L Corrected Calcium 8.5 Phosphorus 4.1 Magnesium 3.1 H Total Bilirubin 0.7 AST 16 ALT 16 Alkaline Phosphatase 297 H D Total Protein 5.5 L Albumin 3.3 L Globulin 2.2 L Albumin/Globulin Ratio 1.5 ABG Interpretation ABG results: 09/21/25 17:09 ABG pH 7.51 H ABG pCO2 44 ABG pO2 69 L ABG HCO3 35 H ABG O2 Saturation 94 ABG Base Excess 11 H Quality Measures Quality Measures VTE prophylaxis Advance care planning discussed with:: patient Assessment & Plan Assessment Current Active Medications: Generic Name Dose Route Start Last Admin Trade Name Freq PRN Reason Stop Dose Admin Acetaminophen 650 mg 09/22/25 17:49 Acetaminophen 325 Mg Tablet PO 10/22/25 17:48 Q6HR PRN [id number] Amlodipine Besylate 5 mg 09/25/25 09:00 09/25/25 08:26 Amlodipine Besylate 5 Mg Tablet PO 10/25/25 08:59 5 mg QDAY RED Administration Dextrose 25 ml 09/21/25 20:20 Dextrose 50%-Water Inj 50 Ml Syringe IV 10/21/25 20:19 Q15MIN PRN BG 50-70 responsive npo pt Dextrose 50 ml 09/21/25 20:20 Dextrose 50%-Water Inj 50 Ml Syringe IV 10/21/25 20:19 Q15MIN PRN BG <50 OR BG <70 & pt unresponsive Enoxaparin Sodium 40 mg 09/23/25 09:00 09/25/25 08:25 Enoxaparin Sod Inj 40 Mg/0.4 Ml Syringe SC 10/07/25 08:59 40 mg QDAY RED Administration Glucagon 1 mg 09/21/25 20:20 Glucagon Inj 1 Mg Vial IM Q15MIN PRN BG <70, and no IV access Piperacillin/Tazobactam/Dextrose 3.375 gm in 50 mls @ 12.5 mls/hr 09/22/25 06:00 09/25/25 05:05 Zosyn IV 09/29/25 05:59 12.5 mls/hr Q8HR RED Administration Protocol Sodium Chloride 1,000 mls @ 120 mls/hr 09/24/25 22:04 09/24/25 22:17 Ns 0.45% IV 10/24/25 22:03 120 mls/hr .Q8H20M RED Administration Insulin Degludec 15 unit 09/24/25 21:00 09/24/25 20:55 Insulin Degludec 5 Unit/0.05 Ml (Per 5 Units) SC 10/24/25 20:59 15 unit QDAY@2100 RED Administration Insulin Human Lispro 0 unit 09/24/25 11:30 09/25/25 11:11 Insulin Lispro (Admelog) 1 Unit/0.01 Ml Unit SC 10/24/25 11:29 Not Given ACHS [facility] Protocol Morphine Sulfate 2 mg 09/21/25 20:10 09/22/25 12:10 Morphine Sulf Inj 4 Mg/Ml Vial IVP 09/26/25 20:09 2 mg On Hold: 09/22/25 17:54 Q2H PRN Administration Comment: CHANGED TO 4MG Q4H PAIN SCALE 4-10(Mod-Sev PRN Morphine Sulfate 4 mg 09/22/25 17:49 09/25/25 03:30 Morphine Sulf Inj 4 Mg/Ml Vial IVP 09/27/25 17:48 4 mg Q4HR PRN Administration PAIN Ondansetron HCl 4 mg 09/22/25 17:49 Ondansetron Inj 2 Mg/Ml Inj 2 Ml IVP 10/22/25 17:48 Q4HR PRN NAUSEA OR VOMITING Pantoprazole Sodium 40 mg 09/21/25 20:15 09/25/25 08:25 Pantoprazole Inj 40 Mg Vial IVP 10/21/25 20:14 40 mg QDAY RED Administration Plan 80-year-old male with past medical history of DM2, hypertension, hyperlipidemia, and previous abdominal surgery due to an ulcer was admitted to the hospital due to SBO, high grade. #High grade SBO, mechanical #S/p ex-lap and resection of the small bowel and biopsy of the mesenteric mass and end-to-end anastomosis (09/22/25) #Leukocytosis - resolved #Abdominal distention - present #Post-op ileus Patient came in with complaints of not having bowel movement for around 3 weeks along with abdominal distention and abdominal pain. Patient was sent over to the ER by his primary care physician Abdomen/pelvis CT that showed high-grade mechanical SBO with some mesenteric edema. Leukocytes were in the 40s and downtrended to 36.3 Patient does have a history of abdominal surgery therefore could likely have precipitated the SBO. General surgery saw the patient and recommended NG tube to low intermittent suction and to be followed by bowel series when decompressed. Patient had around 700 cc of output from the NG tube. No acute abdomen findings on physical exam. 09/22/25: ex-lap with small bowel resection. Plan: - Advanced to CLD. - Continue Zosyn (09/22 ~) - Bcx 2/2 neg (09/21/25) - General surgery consulted, appreciate recommendations --> Ex-lap with GenSurg on 09/22/25. - Patient will need outpatient follow up for possible carcinoid tumor per GenSurg, may benefit from another evaluation at a tertiary medical center to see if they can remove tumor from root of mesentery. 5-hydroxyindoleacetic acid and s chromogranin ordered. - MMPR - PT eval --> safe to ambulate to bathroom with FWW and 1 staff assist. - KUB 09/25/25 : large stool burden likely 2/2 to ileus #ERNESTO on CKD Patient came in with creatinine of 3.3 from his baseline around 1.4 Patient's bicarb was 32 with an anion gap of 15 initially and downtrended to anion gap of 12 Patient's difficulty with voiding. ERNESTO could be secondary to low p.o. intake versus decreased urination due to obstruction given that patient had some Plan: - IV fluids - Avoid nephrotoxic agents - Renally dose medication - Follow-up on daily CMP's - Monitor patient's urine output - Nephrology consulted, appreciate recs --> recs IV fluid resuscitation for ERNESTO. - Renal US (09/23/25) --> moderate renal scarring, no hydronephrosis or renal calculi. #Electrolyte imbalance #Hyperkalemia #Hypochloremia #Hyperphosphatemia #Hypocalcemia #Lactic acidosis, resolved Patient is potassium was 5.3, chloride 91, phosphorus was 8, and calcium was 8.4. Plan: - IV fluids - Will replete as necessary - Follow-up on morning CMP #DM2 #Hyperglycemia Chronic medical problems Patient came in with glucose of 419 on CMP Patient takes insulin at home and Jardiance. Last A1c was 8.5 in 12/2023 Plan: - ISS - Hypoglycemic protocol in place. - Insulin degludec 15 units x 1 - Continue Degludec 15U at bedtime (Patient takes 20U at home.) - A1c --> 10.3 #HTN #HLD Chronic medical problems - Resume home BP meds, hold today given soft BP - Resume home atorvastatin after ROBF. Disposition: Pending ROBF, pain control, PT eval. Diet: CLD, advance as tolerated GI prophylaxis: Protonix 40 QD DVT prophylaxis: Lovenox 40mg QD Code: Full Case discussed with my senior resident Dr. Calderon Case discussed with my attending Dr. Kemar Schrader, DO PGY 1
--- NOTE | 2025-09-25 12:06 | PD.NEPHPROG ---
Documentation for date of: 09/25/25 Subjective Subjective Interval history: Mr. Graham is a 81-year-old gentleman with past medical history significant for hypertension, dyslipidemia and previous abdominal surgery due to an ulcer comes into the hospital with chief complaint of abdominal pain, associated with 3 weeks of nausea, abdominal distention and no BM. In the emergency department patient was noted to have a bowel blockage high-grade SBO and mesenteric edema. Patient was taken to the OR yesterday and had an exploratory laparotomy and small bowel resection by Dr. Skelton. Patient noted to have decreased urinary output and elevated BUN and creatinine nephrology consultation was requested. Chart review done as patient seems to be a poor historian. ED course: Initially came in hypertensive and afebrile. Initial labs were evaluate for other significant leukocytosis, mild hypokalemia, anion gap metabolic acidosis, ERNESTO, hyperglycemia, lactic acidosis, hyperphosphatemia, hyperbilirubinemia. Patient's beta-hydroxybutyrate 0.9 and procalcitonin was 5.2. Initial imaging included chest x-ray which showed no active disease, abdomen/pelvis CT which showed mesenteric edema and high-grade mechanical SBO. General surgery was consulted in the ED and recommended NG tube to LIS and bowel series. 09/23/2025 currently seen in medical floor. current medications included Protonix, Zosyn, Lovenox, insulin, normal saline at 100 mL/h. Labs showed WBC 19.5, hemoglobin 12.6, platelets 171. Sodium 147, potassium 4.8, BUN 79, creatinine 3.4, blood sugar 215, A1c 10.3, calcium 8.3, magnesium 4.3, LFTs normal except alk phos 140, albumin 3.0, TSH normal, urinalysis that showed 4+ glucose renal ultrasound stat showed no hydronephrosis. 09/25/2025 patient currently seen in medical floor. Resting comfortably. Status post surgery. BUN and creatinine improving. Sodium seems to be elevated. Will switch IV fluids to half-normal saline. I added amlodipine. Blood pressure 146/85, heart rate 78. Hemoglobin 12.8. Sodium 147, potassium 4.2, BUN 57, creatinine 2.4, calcium 8.5, magnesium 3.1, LFTs normal except alk phos 297. Today patient complaining of abdominal discomfort. KUB showed mild ileus. Review of Systems Review of Systems Narrative Review of Systems: CONSTITUTIONAL: Patient denies any fever, chills. HEENT: Denies any visual disturbances or hearing problems. CARDIOVASCULAR: Patient denies any chest pain, shortness of breath, swelling in the lower extremities. PULMONARY: Patient denies any shortness of breath, cough. GASTROINTESTINAL: Patient complaining of abdominal pain GENITOURINARY: Patient denies any urinary symptoms of burning or frequency or hematuria, denies any form in the urine. SKIN: Denies any rash. MUSCULOSKELETAL: Denies any muscular skeletal problems of joint pains. NEUROLOGICAL: Denies any neurological problems of strokes, seizures or confusion. Denies any memory problems. PSYCHIATRIC: Denies any depression or anxiety. LYMPHATICS : No lymphadenopathy Exam Vital Signs Temp Pulse Resp BP Pulse Ox O2 Del Method O2 Flow Rate 36.2 C 81 18 151/76 H 98 Nasal Cannula 3 09/25/25 08:00 09/25/25 08:26 09/25/25 08:00 09/25/25 08:26 09/25/25 08:00 09/25/25 08:00 09/25/25 08:00 Narrative Exam GENERAL APPEARANCE: Patient seems to be comfortable, adequately hydrated and nourished. HEENT: EOMI, PERRLA NECK: Neck supple, no JVD or bruit CARDIOVASCULAR: Heart regular, no murmurs LUNGS/CHEST: Chest clear to auscultation. No rales, rhonchi, wheezing ABDOMEN: Status post bowel surgery. Bowel sounds tympanitic, distended EXTREMITIES: No edema, clubbing or cyanosis. SKIN: Skin exam normal without any rashes MUSCULOSKELETAL: Musculoskeletal exam normal PSYCHIATRIC: Normal mood, affect LYMPHATICS: No lymphadenopathy noted NEUROLOGICAL : No neurological deficits Objective Labs 09/25/25 05:05 09/25/25 05:05 Labs: Laboratory Results - last 24 hr 09/25/25 05:05 WBC 10.5 D RBC 4.19 L Hgb 12.8 L Hct 40.4 L MCV 96 MCH 30.5 MCHC 31.7 RDW Std Deviation 46.4 H Plt Count 189 Neut % (Auto) 89 H Lymph % (Auto) 5 L [place] % (Auto) 6 Eos % (Auto) 0 Baso % (Auto) 0 Neut # (Auto) 9.3 H Lymph # (Auto) 0.5 L [place] # (Auto) 0.6 Eos # (Auto) 0.0 Baso # (Auto) 0.0 Immature Gran # (Auto) 0.06 H Absolute Nucleated RBC 0.00 Immature Gran % 1 H Nucleated RBC % 0 Sodium 147 H Potassium 4.2 D Chloride 109 H Carbon Dioxide 26.2 Anion Gap 12 BUN 57 H Creatinine 2.4 H D Estim Creat Clear Calc 26.9 L eGFR 26 L BUN/Creatinine Ratio 24 H Glucose 145 H D Calculated Osmolality 311 H Calcium 7.9 L Corrected Calcium 8.5 Phosphorus 4.1 Magnesium 3.1 H Total Bilirubin 0.7 AST 16 ALT 16 Alkaline Phosphatase 297 H D Total Protein 5.5 L Albumin 3.3 L Globulin 2.2 L Albumin/Globulin Ratio 1.5 ABG Interpretation ABG results: 09/21/25 17:09 ABG pH 7.51 H ABG pCO2 44 ABG pO2 69 L ABG HCO3 35 H ABG O2 Saturation 94 ABG Base Excess 11 H Assessment & Plan Assessment and plan (1) ERNESTO (acute kidney injury): Status: Acute Assessment and plan: ERNESTO secondary to prerenal azotemia. Patient has decreased p.o. intake and fluctuations in blood pressure. Agree with continuing on IV fluids. Renal ultrasound showed no hydronephrosis. Switch IV fluids to half NS (2) SBO (small bowel obstruction): Status: Acute Assessment and plan: Status post exploratory laparotomy small bowel resection. His bowel loops seems to be slightly distended. Surgery on the case (3) Diabetes: Status: Acute Assessment and plan: Low carb diet patient needs aggressive blood sugar control. His last A1c was 10.3 (4) Hypertension: Status: Acute Assessment and plan: Blood pressure seems to be better (5) Hyperlipidemia: Status: Acute Assessment and plan: Check lipids (6) Leukocytosis: Status: Acute Assessment and plan: White count markedly improved after surgery and antibiotics. Additional Assessment & Plan Additional Plan: Thank you Jack for allowing me to participate in the care of Mr. Branch
--- NOTE | 2025-09-25 12:23 | PC.SS ---
SS spoke to Sol Iniguez who requested PT documentation, SS sent PT eval to start authorization process.
--- NOTE | 2025-09-25 15:06 | PC.SS ---
Rounding: Plan to increase diet, DC plan [facility] pending auth.
--- NOTE | 2025-09-25 15:59 | PC.SS ---
SS submitted updated clinicals to Jocelyn Andino Medicare Pref F#[phone]
[2025-09-25] MEDS: SODIUM CHLORIDE 0.45 % 1,000 ML 60 ML IV (18:49)
[2025-09-25] MEDS: INSULIN DEGLUDEC 5 UNIT/0.05 ML (PER 5 UNITS) 15 UNIT SC (21:28)
[2025-09-26] VITALS (7 sets, daily range): BP systolic 140–166; BP diastolic 66–82; PULSE 59–71; RESP 18–22; TEMP 36.2–36.6; O2SAT 95–96; BMI 30.9
[2025-09-26] MEDS: PIPER/TAZO 3.375 GM PREMIX 3.375 GM/50 ML BAG IV ×2 (05:17→14:12)
[2025-09-26 06:52] LABS: Alanine Aminotransferase 22 U/L (10-49); Albumin, Serum 3.0 gm/dL (3.4-4.8); Albumin/Globulin Ratio 1.4 (1.2-2.2); Alkaline Phosphatase 366 U/L (46-116); Anion Gap 11 (7-16); Aspartate Amino Transferase 36 U/L (0-34); BUN/Creatinine Ratio 25 Ratio (12-20); Bilirubin,Total 0.8 mg/dL (0.3-1.2); Blood Urea Nitrogen 50 mg/dL (9-23); Calcium 7.7 mg/dL (8.3-10.6); Calcium (Corrected) 8.5 mg/dL (8.5-10.1); Carbon Dioxide 24.5 mMol/L (20.0-31.0); Chloride 112 mMol/L (98-107); Creatinine (Component) 2.0 mg/dL (0.6-1.3); Estimated Creatinine Clearance 32.4 mL/min (>60); Globulin 2.1 gm/dL (2.3-3.5); Glucose 114 mg/dL (74-106); Magnesium 2.5 mg/dL (1.6-2.6); Osmolality,Calculated 306 (275-295); Phosphorous 3.2 mg/dL (2.4-5.1); Potassium 4.1 mMol/L (3.4-5.1); Sodium 147 mMol/L (136-145); Total Protein 5.1 gm/dL (5.7-8.2); eGFR 33 See Note
[2025-09-26] MEDS: PANTOPRAZOLE 40 MG TABLET PO (08:04)
[2025-09-26] MEDS: ENOXAPARIN SOD INJ 40 MG/0.4 ML SYRINGE SC (08:05)
[2025-09-26 09:10] LABS: Basophils # (Auto) 0.0 Thou/mm3 (0.0-0.2); Basophils % (Auto) 0 % (0-2.5); Eosinophils # (Auto) 0.1 Thou/mm3 (0.0-0.5); Eosinophils % (Auto) 1 % (0-10); Hematocrit 39.7 % (41.0-53.0); Hemoglobin 12.5 g/dL (13.5-16.0); Immature Granulocytes Auto 0.05 Thou/mm3 (0.00-0.00); Lymphocytes # (Auto) 0.6 Thou/mm3 (1.0-4.8); Lymphocytes % (Auto) 7 % (10-50); Mean Corpuscular HGB Conc 31.5 g/dl (31.0-37.0); Mean Corpuscular Hemoglobin 30.3 pg (25.0-35.0); Mean Corpuscular Volume 96 fL (80-100); Monocytes # (Auto) 0.6 Thou/mm3 (0.0-0.8); Monocytes % (Auto) 7 % (0-12); Neutrophils # (Auto) 7.4 Thou/mm3 (1.8-7.7); Neutrophils % (Auto) 85 % (37-80); Nucleated Red Blood Cell # 0.00 Thou/mm3 (0.00-0.00); Nucleated Red Blood Cell % 0 /100 WBC (0); Platelet Count 190 Thou/mm3 (140-440); RDW Standard Deviation 45.8 fL (35.1-43.9); Red Blood Count 4.12 Miln/mm3 (4.50-5.90); White Blood Count 8.7 Thou/mm3 (3.8-10.6)
--- NOTE | 2025-09-26 09:49 | PD.NEPHPROG ---
Documentation for date of: 09/26/25 Subjective Subjective Interval history: Mr. Graham is a 81-year-old gentleman with past medical history significant for hypertension, dyslipidemia and previous abdominal surgery due to an ulcer comes into the hospital with chief complaint of abdominal pain, associated with 3 weeks of nausea, abdominal distention and no BM. In the emergency department patient was noted to have a bowel blockage high-grade SBO and mesenteric edema. Patient was taken to the OR yesterday and had an exploratory laparotomy and small bowel resection by Dr. Skelton. Patient noted to have decreased urinary output and elevated BUN and creatinine nephrology consultation was requested. Chart review done as patient seems to be a poor historian. ED course: Initially came in hypertensive and afebrile. Initial labs were evaluate for other significant leukocytosis, mild hypokalemia, anion gap metabolic acidosis, ERNESTO, hyperglycemia, lactic acidosis, hyperphosphatemia, hyperbilirubinemia. Patient's beta-hydroxybutyrate 0.9 and procalcitonin was 5.2. Initial imaging included chest x-ray which showed no active disease, abdomen/pelvis CT which showed mesenteric edema and high-grade mechanical SBO. General surgery was consulted in the ED and recommended NG tube to LIS and bowel series. 09/23/2025 currently seen in medical floor. current medications included Protonix, Zosyn, Lovenox, insulin, normal saline at 100 mL/h. Labs showed WBC 19.5, hemoglobin 12.6, platelets 171. Sodium 147, potassium 4.8, BUN 79, creatinine 3.4, blood sugar 215, A1c 10.3, calcium 8.3, magnesium 4.3, LFTs normal except alk phos 140, albumin 3.0, TSH normal, urinalysis that showed 4+ glucose renal ultrasound stat showed no hydronephrosis. 09/25/2025 patient currently seen in medical floor. Resting comfortably. Status post surgery. BUN and creatinine improving. Sodium seems to be elevated. Will switch IV fluids to half-normal saline. I added amlodipine. Blood pressure 146/85, heart rate 78. Hemoglobin 12.8. Sodium 147, potassium 4.2, BUN 57, creatinine 2.4, calcium 8.5, magnesium 3.1, LFTs normal except alk phos 297. Today patient complaining of abdominal discomfort. KUB showed mild ileus. 09/26/2025 patient currently seen in medical floor. Anxious to go home. He has good bowel movements. Patient is able to tolerate p.o. Labs and medications have been reviewed. Creatinine improved to 2.0. Spoke to primary team that he can come and see me in my office in 1 to 2 weeks. Review of Systems Review of Systems Narrative Review of Systems: CONSTITUTIONAL: Patient denies any fever, chills. HEENT: Denies any visual disturbances or hearing problems. CARDIOVASCULAR: Patient denies any chest pain, shortness of breath, swelling in the lower extremities. PULMONARY: Patient denies any shortness of breath, cough. GASTROINTESTINAL: Abdominal pain better GENITOURINARY: Patient denies any urinary symptoms of burning or frequency or hematuria, denies any form in the urine. SKIN: Denies any rash. MUSCULOSKELETAL: Denies any muscular skeletal problems of joint pains. NEUROLOGICAL: Denies any neurological problems of strokes, seizures or confusion. Denies any memory problems. PSYCHIATRIC: Denies any depression or anxiety. LYMPHATICS : No lymphadenopathy Exam Vital Signs Temp Pulse Resp BP Pulse Ox O2 Del Method O2 Flow Rate 36.3 C 65 19 166/80 H 96 Nasal Cannula 3 09/26/25 08:00 09/26/25 08:05 09/26/25 08:00 09/26/25 08:05 09/26/25 08:00 09/26/25 04:00 09/26/25 04:00 Narrative Exam GENERAL APPEARANCE: Patient seems to be comfortable, adequately hydrated and nourished. HEENT: EOMI, PERRLA NECK: Neck supple, no JVD or bruit CARDIOVASCULAR: Heart regular, no murmurs LUNGS/CHEST: Chest clear to auscultation. No rales, rhonchi, wheezing ABDOMEN: Status post bowel surgery. Abdomen less distended, bowel sounds present EXTREMITIES: No edema, clubbing or cyanosis. SKIN: Skin exam normal without any rashes MUSCULOSKELETAL: Musculoskeletal exam normal PSYCHIATRIC: Normal mood, affect LYMPHATICS: No lymphadenopathy noted NEUROLOGICAL : No neurological deficits Objective Labs 09/26/25 04:52 09/26/25 04:52 Labs: Laboratory Results - last 24 hr 09/26/25 04:52 WBC 8.7 RBC 4.12 L Hgb 12.5 L Hct 39.7 L MCV 96 MCH 30.3 MCHC 31.5 RDW Std Deviation 45.8 H Plt Count 190 Neut % (Auto) 85 H Lymph % (Auto) 7 L [place] % (Auto) 7 Eos % (Auto) 1 Baso % (Auto) 0 Neut # (Auto) 7.4 Lymph # (Auto) 0.6 L [place] # (Auto) 0.6 Eos # (Auto) 0.1 Baso # (Auto) 0.0 Immature Gran # (Auto) 0.05 H Absolute Nucleated RBC 0.00 Immature Gran % 1 H Nucleated RBC % 0 Sodium 147 H Potassium 4.1 Chloride 112 H Carbon Dioxide 24.5 Anion Gap 11 BUN 50 H Creatinine 2.0 H Estim Creat Clear Calc 32.4 L eGFR 33 L BUN/Creatinine Ratio 25 H Glucose 114 H Calculated Osmolality 306 H Calcium 7.7 L Corrected Calcium 8.5 Phosphorus 3.2 Magnesium 2.5 Total Bilirubin 0.8 AST 36 H ALT 22 Alkaline Phosphatase 366 H D Total Protein 5.1 L Albumin 3.0 L Globulin 2.1 L Albumin/Globulin Ratio 1.4 ABG Interpretation ABG results: 09/21/25 17:09 ABG pH 7.51 H ABG pCO2 44 ABG pO2 69 L ABG HCO3 35 H ABG O2 Saturation 94 ABG Base Excess 11 H Assessment & Plan Assessment and plan (1) ERNESTO (acute kidney injury): Status: Acute Assessment and plan: ERNESTO secondary to prerenal azotemia. Patient has decreased p.o. intake and fluctuations in blood pressure. Agree with continuing on IV fluids. Renal ultrasound showed no hydronephrosis. Switch IV fluids to half NS Cr better at 2.0 Renal gonzalez stable for discharge. Emphasized to drink enough fluids. (2) SBO (small bowel obstruction): Status: Acute Assessment and plan: Status post exploratory laparotomy small bowel resection. His bowel loops seems to be slightly distended. Patient had bowel sounds now and also had bowel movement yesterday. (3) Diabetes: Status: Acute Assessment and plan: Low carb diet patient needs aggressive blood sugar control. His last A1c was 10.3 (4) Hypertension: Status: Acute Assessment and plan: Blood pressure seems to be better (5) Hyperlipidemia: Status: Acute Assessment and plan: Check lipids (6) Leukocytosis: Status: Acute Assessment and plan: White count markedly improved after surgery and antibiotics. Additional Assessment & Plan Additional Plan: Thank you Jack for allowing me to participate in the care of Mr. Branch
--- NOTE | 2025-09-26 10:28 | ESDS_ITS ---
<Statement entered by Jack Reinoso MD - 09/28/25 08:04> I reviewed above note and agree with findings and plans. I have also personally examined the patient with medicine team and went over assessment and plan with medical team including internet technology manager and resident physician. Planned Discharge Date 09/26/25 DS: Providers Provider Date of admission: 09/21/25 20:22 Primary care physician: Physician No Primary/Family Admitting Provider: Julisa Mejia DO Attending Provider on Admission: Jack Reinoso MD Consults: 09/21/25 16:01 Consult to General Surgery Stat Comment: Consulting Provider: Eden Sheppard 09/23/25 07:36 Consult to Nephrology Routine Comment: ERNESTO Consulting Provider: Amrik Gann 09/23/25 17:57 PT [Referral Physical Therapy] Routine Comment: Physician Instructions: 09/24/25 07:27 PT [Referral Physical Therapy] Urgent Comment: Physician Instructions: Instructions: For ambulation Attending Provider on DC: Jack Reinoso MD Discharging Provider: Jonathan Macias DO Anticipated date of discharge: 09/26/25 DS: Diagnosis Problem List Completed Was Problem List Reviewed/Reconciled?: Yes Hospital Course Hospital Course Hospital course: 80-year-old male with a history of type 2 diabetes mellitus, hypertension, hyperlipidemia, and prior abdominal surgery presented on 09/21/25 at the direction of his primary care physician for three weeks of worsening abdominal pain, distention, poor oral intake, nausea, and constipation without bowel movement. He denied vomiting or urinary symptoms. Initial evaluation revealed severe leukocytosis, lactic acidosis, acute kidney injury, hyperglycemia, and electrolyte abnormalities. CT abdomen/pelvis demonstrated a high-grade mechanical small bowel obstruction with mesenteric edema. General surgery was consulted, and the patient was initially managed conservatively with nasogastric tube decompression to low intermittent suction, bowel rest, IV fluids, and empiric IV Zosyn given marked leukocytosis and elevated procalcitonin. Due to persistent obstruction and concerning imaging findings, he underwent exploratory laparotomy on 09/22/25 with small bowel resection, end-to-end anastomosis, and biopsy of a mesenteric mass. Postoperatively, he was treated with continued IV antibiotics, multimodal pain control, and gradual diet advancement. His postoperative course was complicated by ileus with delayed return of bowel function and abdominal distention. KUB on 09/25/25 demonstrated a large stool burden. He gradually began passing flatus and tolerated a clear liquid diet. Leukocytosis steadily downtrended and resolved, and blood cultures remained negative. Pathology of the mesenteric mass was concerning for carcinoid tumor, chromogranin A and 5-HIAA were sent, and outpatient surgical follow-up with consideration of tertiary center evaluation or chemotherapy was recommended by general surgery. The patient?s acute kidney injury was managed with IV fluid resuscitation and avoidance of nephrotoxic agents with nephrology consultation. Renal ultrasound showed moderate renal scarring without hydronephrosis, and creatinine improved during hospitalization. Electrolyte abnormalities and lactic acidosis resolved with supportive care. Hyperglycemia was managed with basal insulin and sliding scale while NPO, with adjustment of home insulin dosing. Patient was able to tolerate advancement of diet and had a bowel movement before discharge. Patient is medically and physically stable for discharge. Diagnosis: #Carcinoid tumor #High grade SBO, mechanical #S/p ex-lap and resection of the small bowel and biopsy of the mesenteric mass and end-to-end anastomosis (09/22/25) #Leukocytosis #ERNESTO on CKD #Electrolyte imbalance #Hyperkalemia #Hypochloremia #Hyperphosphatemia #Hypocalcemia #Lactic acidosis #Diabetes mellitus #Hypertension #Hyperlipidemia Discharge Plan: Realice bairon consulta de seguimiento con lopez m?dico de cabecera dentro de la semana posterior al gabriel. Realice bairon consulta de seguimiento con el Dr. Skelton dentro de 1 a 2 semanas despu?s del gabriel. Se le explicaron al paciente las instrucciones sobre kimberly medicamentos y c?mo tomarlos. El paciente pudo explicarle al m?dico y al personal de enfermer?a c?mo codey kimberly medicamentos. El paciente manifest? jose comprendido las instrucciones. Nuevos medicamentos: Hidralazina 25 mg williams veces al d?a para la presi?n arterial, cynthia sustituto de lisinopril y clortalidona. Kimberly medicamentos lisinopril y clortalidona se wilson suspendido temporalmente debido a que lopez funci?n renal a?n no ba vuelto a la normalidad. Reanude lopez administraci?n cuando lopez m?dico de cabecera lo autorice. Contin?e tomando el neville de kimberly medicamentos seg?n lo recetado por lopez m?dico de cabecera. Se le explic? al paciente que, si reaparecen o empeoran los s?ntomas, debe regresar al servicio de urgencias. [place] Islander: Follow up with primary care physician within 1 week of discharge Follow up with Dr. Skelton within 1-2 weeks of discharge Instructions have been explained to the patient with regards to their medications and how to take them. Patient was able to explain back to physician and nursing staff how to take their medications. Patient expressed understanding with instructions. New medications: Hydralazine 25mg three times a day for your blood pressure, as a substitute for your lisinopril and chlorthalidone Your'e medications lisinopril, chlorthalidone has been put on hold due to your kidney function not being back to baseline. Please resume taking them when given the clearance by your primary care physician. Continue to take the rest of your medications as prescribed by your primary care physician. Patient has been explained that should any symptoms recur or worsen patient is instructed to return to the Emergency Department. --- Patient plan of care was discussed with attending physician, . Jonathan Macias, PGY-1 Status at Discharge Overall status at discharge: patient is back to baseline Time Spent with Patient Time attestation: Total time spent providing and/or coordinating discharge services: Time spent: Greater than 30 minutes Exam Vital Signs Temp Pulse Resp BP Pulse Ox O2 Del Method O2 Flow Rate 97.4 F 65 19 166/80 H 96 Nasal Cannula 3 09/26/25 08:00 09/26/25 08:05 09/26/25 08:00 09/26/25 08:05 09/26/25 08:00 09/26/25 04:00 09/26/25 04:00 Narrative Exam General: Alert, oriented, in no acute distress. Pain controlled. HEENT: Normocephalic, atraumatic. Neck: Supple, no JVD, no lymphadenopathy or thyroid enlargement. Cardiovascular: Regular rate and rhythm. No murmurs, rubs, or gallops. Respiratory: Clear to auscultation bilaterally. No wheezes, rales, or rhonchi. Normal respiratory effort. Abdomen: Soft, nontender, but mildly distended. No peritoneal signs. Midline incision dressed, dry and intact. Musculoskeletal: Full range of motion in all extremities. No joint swelling, tenderness, or deformities. Skin: Warm, dry, intact. No rashes or lesions. Discharge Plan Plan Patient Disposition: Xfer Skilled g Fac (SNF) Patient condition on transfer: Stable Care Plan Goals: Realice bairon consulta de seguimiento con lopez m?dico de cabecera dentro de la semana posterior al gabriel. Realice bairon consulta de seguimiento con el Dr. Skelton dentro de 1 a 2 semanas despu?s del gabriel. Se le explicaron al paciente las instrucciones sobre kimberly medicamentos y c?mo tomarlos. El paciente pudo explicarle al m?dico y al personal de enfermer?a c?mo codey kimberly medicamentos. El paciente manifest? jose comprendido las instrucciones. Nuevos medicamentos: Hidralazina 25 mg williams veces al d?a para la presi?n arterial, cynthia sustituto de lisinopril y clortalidona. Kimberly medicamentos lisinopril y clortalidona se wilson suspendido temporalmente debido a que lopez funci?n renal a?n no ba vuelto a la normalidad. Reanude lopez administraci?n cuando lopez m?dico de cabecera lo autorice. Contin?e tomando el neville de kimberly medicamentos seg?n lo recetado por lopez m?dico de cabecera. Se le explic? al paciente que, si reaparecen o empeoran los s?ntomas, debe regresar al servicio de urgencias. [place]er: Follow up with primary care physician within 1 week of discharge Follow up with Dr. Skelton within 1-2 weeks of discharge Instructions have been explained to the patient with regards to their medications and how to take them. Patient was able to explain back to physician and nursing staff how to take their medications. Patient expressed understanding with instructions. New medications: Hydralazine 25mg three times a day for your blood pressure, as a substitute for your lisinopril and chlorthalidone Your'e medications lisinopril, chlorthalidone has been put on hold due to your kidney function not being back to baseline. Please resume taking them when given the clearance by your primary care physician. Continue to take the rest of your medications as prescribed by your primary care physician. Patient has been explained that should any symptoms recur or worsen patient is instructed to return to the Emergency Department. Prescriptions/Referrals Prescriptions/Med Rec: New hydralazine 25 mg tablet 25 mg PO TID 30 Days Qty: 90 0RF Continued doxazosin 1 mg tablet 1 mg PO QDAY 30 Days Qty: 30 0RF insulin glargine [Basaglar KwikPen U-100 Insulin] 100 unit/mL (3 mL) insulin pen 20 unit subcut QAM Qty: 15 0RF (DME) Accu-Chek Tasha Plus test strp Strip See Rx Instructions .Route Qty: 100 0RF Rx Instructions: As directed (DME) lancets Misc See Rx Instructions .Route Qty: 100 0RF Rx Instructions: As directed atorvastatin 10 mg tablet 10 mg PO DAILY Jardiance 25 mg tablet 25 mg PO DAILY magnesium oxide 400 mg magnesium tablet 400 mg PO QDAY ergocalciferol (vitamin D2) [Vitamin D2] 1,250 mcg (50,000 unit) capsule 1,250 mcg PO QWEEK Changed amlodipine 5 mg tablet 10 mg PO DAILY 30 Days Qty: 60 0RF Held chlorthalidone 25 mg tablet 12.5 mg PO DAILY 30 Days 0RF Hold Instructions: Resume on 10/02/25. until seen by PCP Rx Instructions: with orange juice lisinopril 30 mg tablet 30 mg PO DAILY Hold Instructions: Resume on 10/02/25. until seen by PCP Referrals: No Primary/Family,Physician [Primary Care Provider] Nabeel Krishna MD [Physician, General Surgery] Patient/Caregiver Discharge Instructions Print Language: [place] Activity Restrictions/Additional Instructions: Follow-up in my office in 2 weeks. Asked patient to call [phone] for an appointment time Stand Alone Forms: Carol Award Info., Patient Portal Info Letter Discharge Order Discharge Orders: Discharge (Routine); Ordered 12/27/25 Ordered By: Lul Gomes Quality Discharge Quality Measures VTE prophylaxis
--- NOTE | 2025-09-26 11:41 | PC.SS ---
SS received email for SNF auth to [facility], SS reached out to Jayce Escudero [phone], no response. SS also reached out to Admin Krystal Srinivasan [phone], who stated to contact Ophelia Iniguez [phone], SS reached out to inquire if they also received email/fax with auth, pending response if they are able to accept pt today.
--- NOTE | 2025-09-26 11:57 | ESPR_ITS ---
Documentation for date of: 09/26/25 Subjective Subjective Brief History: History of present illness revealed that the patient has been sick for the past 3 or 4 days and he was not eating well and he has not had a bowel movement for 5 days. He noticed increasing abdominal distention and went to his family physician in [place] who immediately sent him to the emergency room. Patient denies any history of vomiting but has not been passing much flatus and had 1 bowel movement yesterday which is very small. Patient denies any such problems in the past. His past medical history revealed the patient had a history of hypertension diabetes mellitus hyperlipidemia and history of renal failure recently diagnosed. Past surgery consist of laparoscopic cholecystectomy and colonoscopy in 2012 and perforated peptic ulcer closure done in 2012 also in this hospital. Patient has any history of cardiac problems is not any blood thinners. He is a smoker smoking about a pack per day for many years and he was taking in the past but he has stopped now except on occasions and he was mostly drinking beer patient is retired. Narrative: Patient is tolerating liquids and has had a bowel movement yesterday. His abdom inal distention is less. 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 This will involve resection of the considerable amount of small bowel because of the ischemia due to resection of the base of the mesentery. This was explained to the patient's family. Patient is being discharged and I will be seeing her in follow-up in 2 weeks PROCEDURES: Procedures Exploratory laparotomy and resection of the small bowel and biopsy of the mesenteric mass and end-to-end anastomosis
[2025-09-26 12:23] LABS: OBS Card Expiration Date 09/30/2026; OBS Card Lot # 23001; OBS Developer Expiration Date 09/30/2026; OBS Developer Lot # 23003; OBS Performed By martc6; OBS QC OK? Yes; Occult Blood, Stool Positive (Negative)
--- NOTE | 2025-09-26 14:53 | PC.SS ---
SS reached out to patient was daughter, Eleni Interiano to inform her of pt DC today to [facility]> Per Eleni she wasn't prepared for this to happen over the weekend. SS explained we can assist with transport if they are unable to do so, pt is able to walk with a walker and can be transported via private vehicle or [employer]. Eleni just requested to make a few calls to family and she will call SS back shortly on plan for pt.
--- NOTE | 2025-09-26 15:42 | PC.SS ---
SS spoke to pt dtr Eleni who stated they do not feel comfortable transporting pt via private vehicle or uber, [facility] with [facility] was attempted but they did not answer. Therefore GABY with [facility] utilized 1x for DC to [facility] at 1530.
--- NOTE | 2025-09-26 17:12 | PC.NURSE ---
Attempted to contact [facility] to give report 5 times between 1630 and 1700. [facility] arrived early @ 1705 (scheduled 1730) to transport patient. Patient transported. Voicemail left with Autumnradha Abraham with callback number.
== END 2025-09-26 17:12 | disposition skilled nursing facility (03) | DRG 345 ==
LOC: SERX 17:29 → SERHOLD 20:34 → S3SX 21:29
PROVIDERS: Registered Nurse General Practice; Surgery; Admitting Provider Internal Medicine; Emergency Provider Family Medicine; Visit Provider Internal Medicine
PROC: 0DBB0ZX Excision of Ileum, Open Approach, Diagnostic (ICD-10-PCS; CPT 49000; principal; 2025-09-22 14:00)
DX: K56.691 Other complete intestinal obstruction (principal); E87.20 Acidosis, unspecified; N17.9 Acute kidney failure, unspecified; K91.89 Other postprocedural complications and disorders of digestive system; K55.9 Vascular disorder of intestine, unspecified; E11.65 Type 2 diabetes mellitus with hyperglycemia; E78.5 Hyperlipidemia, unspecified; E83.39 Other disorders of phosphorus metabolism; E87.5 Hyperkalemia; E87.8 Other disorders of electrolyte and fluid balance, not elsewhere classified; N18.9 Chronic kidney disease, unspecified; E11.22 Type 2 diabetes mellitus with diabetic chronic kidney disease; I12.9 Hypertensive chronic kidney disease with stage 1 through stage 4 chronic kidney disease, or unspecified chronic kidney disease; D3A.098 Benign carcinoid tumors of other sites; E83.51 Hypocalcemia; K56.7 Ileus, unspecified; Z79.4 Long term (current) use of insulin; Z87.891 Personal history of nicotine dependence; Z87.11 Personal history of peptic ulcer disease; Z90.49 Acquired absence of other specified parts of digestive tract
CPT/HCPCS: 36415; 36600; 51702; 71045; 74018; 74176; 76770; 80053; 80069; 80307; 81001; 82010; 82270; 82803; 83036; 83605; 83615; 83735; 83880; 84100; 84145; 84443; 84484; 85025; 85610; 85730; 87040; 93005; 93225; 96361; 96374; 96375; 97162; 99285; A4314; A4649; J0613; J1100; J1650; J1805; J1815; J2270; J2405; J2470; J2543; J2598; J2704; J2710; J3010; J3490; J7030; J7042; P9045; A9270; J1596